=== PATIENT | male | born 1940 | race Caucasian/White ===

== ENCOUNTER 2019-04-04 14:07 | Outpatient (CLI) | payer MEDICARE, OTHER, SELFPAY ==
--- NOTE | 2019-04-04 14:25 | ECG_ITS ---
Measurements Intervals [place] Rate: 69 P: 58 [place]: 166 QRS: 59 QRSD: 101 T: 61 QT: 388 QTc: 416 Interpretive Statements SINUS RHYTHM NORMAL ECG Electronically Signed On 04-04-2019 14:49:08 BLADE FILER by Enrique Dumas D.O.
== END 2019-04-04 14:08 | disposition home or self-care (01) ==
PROVIDERS: PCP Family Medicine; Visit Provider Internal Medicine Cardiovascular Disease
DX: I50.9 Heart failure, unspecified (principal)
CPT/HCPCS: 93005

== ENCOUNTER 2019-04-07 12:22 | Outpatient (CLI) | payer MEDICARE, OTHER, SELFPAY ==
--- NOTE | 2019-04-07 12:32 | ECHO_ITS ---
Patient Info Name: Zachery Major Age: 78 years : 1940 Gender: Male Ht: 67 in Wt: 172 lbs BSA: 1.94 m2 HR: 71 bpm BP: 120 / 43 mmHg Heart Rhythm: Sinus Rhythm Technical Quality: Fair Exam Date: 04/07/2019 1:03 PM Exam Location: [facility] Patient Status: Outpatient Admit Date: 04/07/2019 Staff Ordering Physician: Enrique Dumas DO Lump Roller: Anthony Barba RDCS Attending Provider: Enrique Dumas DO Referring Physician: Piter STAFFORD; Exam Type: CA echo doppler color flow Study Info Indications I50.9 - Heart failure, unspecified Complete two-dimensional, color flow and Doppler transthoracic echocardiogram is performed. Strain analysis performed. History/Risk Factors Heart failure. Summary 1. Left ventricular chamber dimension is normal. 2. Left ventricular systolic function is normal, estimated at 65-70%. 3. There is moderately increased left ventricular wall thickness. 4. The left ventricular diastolic function is grade I diastolic dysfunction. 5. E/e' 13 is mildly elevated. 6. Global longitudinal strain is essentially normal at -16.8%. 7. The aortic valve is not well visualized. 8. There is mild aortic valve stenosis based on a peak velocity of 212 cm/s, mean gradient of 9 mmHg, and aortic valve area of 1.7 cm2. 9. No pulmonary hypertension, estimated pulmonary arterial systolic pressure is 38 mmHg. Left Ventricle E/e' 13 is mildly elevated. Global longitudinal strain is essentially normal at -16.8%. Left ventricular chamber dimension is normal. Left ventricular systolic function is normal, estimated at 65-70%. There is moderately increased left ventricular wall thickness. The left ventricular diastolic function is grade I diastolic dysfunction. Right Ventricle Right ventricular chamber dimension is normal. Right ventricular systolic function is normal. Left Atria Left atrial chamber dimension is normal. Right Atria Right atrial chamber dimension is normal. Aortic Valve There is mild aortic valve stenosis based on a peak velocity of 212 cm/s, mean gradient of 9 mmHg, and aortic valve area of 1.7 cm2. Cannot determine number of aortic valve leaflets. The aortic valve is not well visualized. There is no aortic valve regurgitation. Pulmonic Valve There is no pulmonic regurgitation. Mitral Valve There is no mitral valve stenosis. There is no mitral valve regurgitation. Tricuspid Valve There is no tricuspid valve regurgitation. No pulmonary hypertension, estimated pulmonary arterial systolic pressure is 38 mmHg. Pericardium/Pleural There is no pericardial effusion. Inferior Vena Cava Normal inferior vena cava with >50% collapse upon inspiration consistent with normal right atrial pressure, 5 mmHg. Aorta The aortic root size at the sinus of Valsalva is normal. Left Ventricular Outflow Tract Name Value Normal LVOT 2D LVOT Diameter 2.0 cm LVOT Doppler LVOT Peak Velocity 124 cm/s LVOT Peak Gradient 6 mmHg LVOT Mean Gradient 3 mmHg LVOT VTI
== END 2019-04-07 12:23 | disposition home or self-care (01) ==
PROVIDERS: PCP Family Medicine; Visit Provider Internal Medicine Cardiovascular Disease
DX: I50.9 Heart failure, unspecified (principal)
CPT/HCPCS: 93306

== ENCOUNTER 2019-12-13 14:35 | Outpatient (CLI) | payer MEDICARE, OTHER, SELFPAY ==
--- NOTE | ~2019-12-13 | US_ITS ---
EXAMINATION: US abdomen complete EXAM DATE: 12/13/2019 15:42 INDICATION: R10.9 - Unspecified abdominal pain . TECHNIQUE: Multiple grayscale and Doppler images of the complete abdomen were obtained (by a technolo gist who performed the scan) and subsequently reviewed. There is no prior study for comparison. FINDINGS: The abdominal aorta is normal in caliber. Visualized portion IVC is patent. Pancreas not visualiz ed due to bowel gas. The liver has normal echogenicity and contour. There are no focal liver lesions identified. There is no evidence of intrahepatic biliary duct dilation. Portal venous flow was seen in the hepatopedal , normal direction and has normal Doppler waveform. Common bile duct measures 5 mm, which is normal. The gallbladder fossa is unremarkable. Right kidney: There is normal contour and echogenicity. It measures 6.4 x 4.3 x 5.2 centimeters. T here are no focal renal lesions identified. There is no hydronephrosis. Left kidney: There is normal contour and echogenicity. It measures 10.6 x 5.5 x 4.3 centimeters. T here are no focal renal lesions identified. There is no hydronephrosis. The spleen measures 9.3 centimeters and is morphologically normal. IMPRESSION: 1. Unremarkable complete abdominal ultrasound exam. Reviewed, dictated and finalized at location B. [employer]
[2019-12-13 14:55] LABS: Basophils Absolute Auto 0.06 K/mm3 (0.00-0.10); Basophils Percent Auto 0.7 % (0.0-1.0); Eosinophils Absolute Auto 0.07 K/mm3 (0.02-0.50); Eosinophils Percent Auto 0.8 % (1.0-6.0); Hematocrit 42.8 % (37.0-46.0); Hemoglobin 13.8 g/dL (12.4-15.3); Immature Granulocyte Absolute 0.03 K/mm3 (0.00-0.00); Immature Granulocyte Percent A 0.3 % (0.0-0.0); Lymphocytes Absolute Auto 2.23 K/mm3 (1.10-4.50); Lymphocytes Percent Auto 24.8 % (18.0-42.0); Mean Corpuscular HGB Conc 32.2 g/dL (32.0-36.0); Mean Corpuscular Hemoglobin 33.2 pg (27.0-31.0); Mean Corpuscular Volume 102.9 fL (78.0-102.0); Mean Platelet Volume 10.1 fl (8.7-11.0); Monocytes Absolute Auto 0.77 K/mm3 (0.10-0.90); Monocytes Percent Auto 8.5 % (2.0-11.0); Neutrophils Absolute Auto 5.9 K/mm3 (1.7-7.2); Neutrophils Percent Auto 64.9 % (50.0-70.0); Platelet Count Result 188 K/mm3 (150-420); Red Blood Count 4.16 M/mm3 (4.70-6.10); Red Cell Distribution Width 12.1 % (11.6-14.4)
[2019-12-13 15:11] LABS: Alanine Aminotransferase 25 U/L (16-63); Albumin Level 4.1 g/dL (3.4-5.0); Alkaline Phosphatase 79 U/L (46-116); Amylase 61 U/L (25-115); Anion Gap 11 mmol/L (8-16); Aspartate Amino Transferase 22 U/L (15-37); Bilirubin,Total 0.7 mg/dL (0.00-1.00); Blood Urea Nitrogen 44 mg/dL (7-18); Calcium 8.5 mg/dL (8.5-10.1); Carbon Dioxide 31 mmol/L (21-32); Chloride 99 mmol/L (98-108); Estimated Glomerular Filt Rate 43; Glucose 114 mg/dL (70-99); Lipase 147 U/L (73-393); Osmolality Calculated 304 mOsm/kg (285-295); Potassium 3.1 mmol/L (3.5-5.1); Sodium 141 mmol/L (136-145); Total Protein 7.4 g/dL (6.4-8.2)
== END 2019-12-13 14:36 | disposition home or self-care (01) ==
LOC: CHSLAB 14:39
PROVIDERS: PCP Family Medicine; Visit Provider Nurse Practitioner Family
DX: R10.9 Unspecified abdominal pain (principal)
CPT/HCPCS: 36415; 76700; 80053; 82150; 83690; 85025

== ENCOUNTER 2020-01-28 11:45 | Emergency (ER) | payer MEDICARE, OTHER, SELFPAY ==
--- NOTE | ~2020-01-28 | XR_ITS ---
EXAMINATION: XR lumbar spine 2-3V DATE: 01/28/2020 12:38 INDICATION: Low back pain. TECHNIQUE: 3 views of lumbar spine on 4 radiographs were obtained. COMPARISON: Lumbar spine radiographs 06/07/14, lumbar spine MRI 09/30/2014 FINDINGS: There is 3 mm retrolisthesis of L1 on L2 and L2 on L3. There is 7 degrees dextrocurvature o f lumbar spine. Vertebral body heights are normal. There is moderately decreased disc height at L1-L2 and L2-L3, mildly decreased disc height at L3-L4, moderately decreased disc height at L4-L5, and sev erely decreased disc height at L5-S1. There is multilevel facet joint osteoarthritis. There are surgi gina clips in the abdomen. IMPRESSION: 1. Severe lumbar spondylosis. Reviewed, dictated and finalized at location A. 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
[2020-01-28 12:00] VITALS: BP 122/64; PULSE 76; RESP 18; TEMP 36.6; O2SAT 100
--- NOTE | 2020-01-28 12:16 | ED.GENADULT ---
HPI - General Adult General Chief complaint: Back Pain/Injury Stated complaint: back pain Source: patient Mode of arrival: ambulatory Limitations: no limitations History of Present Illness HPI narrative: Zachery is a 79M with a PMH of osteoporosis, Parkinsons, CHF, GERD and chronic back pain s/p surgery in 1995. He normally has a chronic ache but right now it feels like a screw front end driver is being drilled into his back and pain shoots down his leg. It started a few days ago. No fall, trauma, loss of bowel or bladder control, numbness or paralysis. Related Data Home Medications Medication Instructions Recorded Confirmed calcium carbonate 600 mg calcium 600 mg PO BID 02/16/19 01/28/20 (1,500 mg) tablet magnesium 250 mg tablet 500 mg PO DAILY tablet 02/16/19 01/28/20 multivitamin with iron 1 tablet PO DAILY 02/16/19 12/27/19 sildenafil (pulm.hypertension) 20 20 mg PO ONCE PRN tablet 02/16/19 01/28/20 mg tablet tramadol 50 mg tablet 50 mg PO Q6H PRN 02/16/19 01/28/20 vitamin A 8,000 unit capsule 25,000 unit PO DAILY cap 02/16/19 01/28/20 ferrous sulfate 325 mg (65 mg 325 mg PO DAILY 08/15/19 01/28/20 iron) tablet dwhabk-lekcxtau-cnnggkv 2 cap PO BID 08/15/19 01/28/20 12,000-38,000-60,000 unit capsule,delayed rel wsblsrxxguyd-qgbcrlyg-rsjttc 1 tablet PO DAILY 01/28/20 01/28/20 [Centrum Silver] vitamins A,C,R-nxej-hrnyyh 1 tablet PO BID 01/28/20 01/28/20 [Ocuvite Preservision] Allergies Allergy/AdvReac Type Severity Reaction Status Date / Time adhesive Allergy Intermediate Unknown Verified 12/23/19 10:22 adhesive tape Allergy Unknown rash Verified 12/23/19 10:22 Review of Systems Constitutional: Constitutional: Reports no additional constitutional complaints Eyes: Eyes: Reports no additional eye complaints ENT: Reports system reviewed and no additional complaints, except as documented Cardiovascular: Cardiovascular: Reports no additional cardiovascular complaints Respiratory: Respiratory: Reports no additional respiratory complaints Gastrointestinal: Gastrointestinal: Reports no additional gastrointestinal complaints Genitourinary: Genitourinary: Reports no additional male genitourinary complaints Musculoskeletal: Musculoskeletal: Reports as per HPI Integumentary/Breasts: Skin/Breast: Reports system reviewed and no additional complaints, except as docu Neurologic: Reports system reviewed and no additional complaints, except as documented Psychiatric: Psychiatric: Reports no additional psychiatric complaints [facility] Past Medical History Medical History Arthritis CHF (congestive heart failure) Constipation Fusion of lumbar spine Generalized osteoarthritis Heart murmur Hypokalemia Parkinsons disease Rectal fistula Trigger finger Surgical History Surgical History H/O hernia repair umbilical H/O repair of rotator cuff bilateral History of back surgery L3-:4 History of bilateral knee arthroplasty History of carpal tunnel release bilateral History of cataract surgery S/P biliopancreatic diversion with duodenal switch Family History Family History Mother Renal failure Father Burn Sibling Acute myocardial infarction Hypertension Other Family history of alcoholism Family history of arthritis Family history of glaucoma Family history of hearing loss Social History Social History Smoking status: Former smoker Tobacco type: cigarettes Alcohol intake: never Exam Const: General: no acute distress and alert Orientation/consciousness: patient oriented x3 Limitations: No altered mental status HENMT: Other: normocephalic, atraumatic Eyes: Conjunctivae: conjunctivae normal Pupils: Equal, round and reactive pupils present Neck
[2020-01-28] MEDS: MORPHINE SULFATE (*CRX) 4 MG/ML INJ IM (12:23)
== END 2020-01-28 13:20 | disposition home or self-care (01) ==
PROVIDERS: Emergency Provider Family Medicine; PCP Family Medicine
DX: M47.896 Other spondylosis, lumbar region (principal)
CPT/HCPCS: 72100; 96372; 99283; J2270

== ENCOUNTER 2020-03-28 07:54 | Outpatient (CLI) | payer MEDICARE, SELFPAY ==
[2020-03-28 08:07] LABS: Hematocrit 40.9 % (37.0-46.0); Hemoglobin 13.1 g/dL (12.4-15.3); Mean Corpuscular Hemoglobin 31.6 pg (27.0-31.0); Mean Corpuscular Volume 98.6 fL (78.0-102.0); Mean Platelet Volume 10.3 fl (8.7-11.0); Platelet Count Result 181 K/mm3 (150-420); Red Blood Count 4.15 M/mm3 (4.70-6.10); Red Cell Distribution Width 13.5 % (11.6-14.4); White Blood Count 8.5 K/mm3 (4.8-10.8)
[2020-03-28 09:41] LABS: Alanine Aminotransferase 24 U/L (16-63); Albumin Level 3.8 g/dL (3.4-5.0); Alkaline Phosphatase 91 U/L (46-116); Anion Gap 10 mmol/L (8-16); Aspartate Amino Transferase 21 U/L (15-37); Bilirubin,Total 0.6 mg/dL (0.00-1.00); Blood Urea Nitrogen 41 mg/dL (7-18); Calcium 8.4 mg/dL (8.5-10.1); Carbon Dioxide 29 mmol/L (21-32); Chloride 101 mmol/L (98-108); Estimated Glomerular Filt Rate 47; Ferritin 228 ng/mL (26-388); Folic Acid > 20.0 ng/mL (8.6->20); Glucose 86 mg/dL (70-99); Osmolality Calculated 299 mOsm/kg (285-295); Potassium 3.4 mmol/L (3.5-5.1); Sodium 140 mmol/L (136-145); Total Protein 6.7 g/dL (6.4-8.2); Vitamin B12 1163 pg/mL (193-986)
[2020-03-31 09:55] LABS: Vitamin A 56 mcg/dL (38-98)
== END 2020-03-28 07:55 | disposition home or self-care (01) ==
LOC: CHSLAB 07:58
PROVIDERS: PCP Family Medicine; Visit Provider Family Medicine
DX: I50.9 Heart failure, unspecified (principal); E87.6 Hypokalemia; Z98.84 Bariatric surgery status; E53.8 Deficiency of other specified B group vitamins
CPT/HCPCS: 36415; 80053; 82607; 82728; 82746; 84590; 85027

== ENCOUNTER 2020-04-23 12:52 | Outpatient (RCR) | payer MEDICARE, OTHER, SELFPAY ==
--- NOTE | 2020-04-23 13:43 | PTOPEVAL ---
Thank you for referring Zachery Major to [facility] [place] [facility] [place] The patient is scheduled to be seen for therapy? __3__x/week for 12 visits. Please review, sign, date and return this plan of care [place]. I agree with and certify that the following plan of care is medically necessary. Referring Physician Date Admitting Provider: Attending Provider: Bacilio Álvarez Referring Provider: *PT Outpatient Evaluation Start: 04/23/20 13:02 Freq: Status: Active Protocol: Document 04/23/20 13:03 BRITTNEY (Rec: 04/23/20 13:42 BRITTNEY [email or web address]) Therapy Assessment Status Assessment Status Assessment Status Evaluation Outpatient Past Medical History Neurological History Hx Parkinson's Disease Yes Gastrointestinal History Hx Gastroesophageal Reflux Disease Yes Hx Hernia Yes Musculoskeletal History Hx Arthritis Yes Hx Back Pain Yes Hx Joint Replacement Yes Hx Orthopedic Surgery Yes Evaluation Information Problem Diagnosis idiopathic parkinson's disease , unsteady gait Onset 09/10/19 Subjective Information Pt. reports that he was Query Text:As Reported By Patient/ diagnosed with PD in September. Family He reports that he is most limited by his back pain. He reports that he cannot help around the home very often due to inability to stand due to pain. He reports that he is using a cane to walk for the past several months. He states that he is no longer driving. He denies any recent falls, but notes that he cannot walk without a cane or walker. He reports that his primary goal is to reduce his back pain. Prior Level of Function Comments Additional Prior Level of Function Pt. lives with his . He Comments states that he is able to complete dressing, grooming and bathing, but his has to complete the more aggressive house work. He reports that he gave up driving about 1 month ago. Pain Assessment Pain Scale Pain Scale Used Numeric (1 - 10) Self Report Pain Assessment Lower Back Reported Pain Level 2 Pain Description Aching,Burning Pain Rad
--- NOTE | 2020-05-25 15:00 | PTOPEVAL ---
Thank you for referring Zachery Major to [facility].? The patient is scheduled to be seen for therapy? ____x/week for ___ weeks. Please review, sign, date and return this plan of care [place]. I agree with and certify that the following plan of care is medically necessary. Referring Physician Date Admitting Provider: Attending Provider: Bacilio Álvarez Referring Provider: *PT Outpatient Evaluation Start: 04/23/20 13:02 Freq: Status: Active Protocol: Document 05/25/20 13:40 ACR (Rec: 05/25/20 14:48 ACR [email or web address]) Therapy Assessment Status Assessment Status Assessment Status Discharge Outpatient Past Medical History Neurological History Hx Parkinson's Disease Yes Gastrointestinal History Hx Gastroesophageal Reflux Disease Yes Hx Hernia Yes Musculoskeletal History Hx Arthritis Yes Hx Back Pain Yes Hx Joint Replacement Yes Hx Orthopedic Surgery Yes Evaluation Information Problem Diagnosis idiopathic PD, low back pain Onset 09/10/19 Subjective Information Patient states that he feels Query Text:As Reported By Patient/ he can move his lower legs Family easier. He states that his condition is chronic and is unable to think of anything else that has improved since the beginning of therapy. He states the pain fluctuates and was so bad this morning that he was unable to move his legs . Pain Assessment Timing of Pain Assessment Timing of Pain Assessment Pre-Treatment Pain Scale Pain Scale Used Numeric (1 - 10) Self Report Pain Assessment Lower Back Reported Pain Level 2 Greatest Pain Intensity 9 Pain Score Pain Score 2: Self Report Interventions Used Interventions Used By Clinicians Activity or ADL's,Education, Electrical Stimulation, Exercise,Heat Lower Extremity Muscle Strength Testing General Lower Extremity Strength Gross Lower Extremity Strength B hip flexion: 4+/5 B hip extension: 4/5 B knee flexion: 5/5 B knee extension: 4+/5 B ankle DF: 4+/5 Muscle Length Testing Muscle Length Testing Muscle Length Testing Comments Patient unable to be on back this visit to check hamstring flexibility Balance Assessment Tinetti Balance Assessment Sitting Balance Steady,
== END 2020-05-25 15:45 | disposition home or self-care (01) ==
LOC: CHSPT 12:52
DX: G20 Parkinson's disease (principal); R26.9 Unspecified abnormalities of gait and mobility
CPT/HCPCS: 97014; 97110; 97161; G0283

== ENCOUNTER 2020-05-24 12:21 | Outpatient (CLI) | payer MEDICARE, OTHER, SELFPAY ==
--- NOTE | ~2020-05-24 | DEXA_ITS ---
Bone Density Report Name: Zachery Major Age: 79 Sex: Male Ethnicity: White Date of : 1940 Indication: screening for osteoporosis; height loss; prior fracture; Referring Provider: Adrien Harris Study: Bone densitometry was performed. Exam Date: May 24, 2020 Accession number: [id number] Bone Density: Region BMD T-score Z-score Classification AP Spine(L3, L4) 0.718 -3.7 -2.6 Osteoporosis Femoral Neck (Left) 0.568 -2.7 -1.2 Osteoporosis Total Hip (Left) 0.737 -2.0 -1.0 Osteopenia Femoral Neck (Right) 0.545 -2.8 -1.4 Osteoporosis Total Hip (Right) 0.653 -2.5 -1.6 Osteoporosis Femoral Neck Mean 0.557 -2.7 -1.3 Osteoporosis Total Hip Mean 0.695 -2.2 -1.3 Osteopenia World Health Organization criteria for BMD impression classify patients as: Normal (T-score at or above -1.0), Osteopenia (T-score between -1.0 and -2.5), or Osteoporosis (T-score at or below -2.5). 10-year Fracture Risk: FRAX not reported because: Some T-score for Spine Total or Hip Total or Femoral Neck at or below -2.5 Treated for osteoporosis Clinical Information Provided by Patient: Has had a low trauma fracture Is being treated for osteoporosis Has used the following medications: Fosamax (i.e. alendronate), Vitamin D, Calcium Patient maximum height was 69 Drinks caffeinated beverages Impression: The patient has established osteoporosis, based on the Total Spine T-score and the existence of a prior fracture. The patient has risk factors, including: previous fracture. Discussion: It is important to ask patients whether they are taking their medications and to encourage continued and appropriate compliance with their osteoporosis therapies to reduce fracture risk. It is also important to review their risk factors and encourage appropriate calcium and vitamin D intakes, exercise, fall prevention and other lifestyle measures. Follow-Up: Consider repeating this study in 2 years to reassess this patient's status, or sooner if there is some new clinical indication. Reported by: Dr. Dany Darling on 05/24/2020 1:01:00 PM. Reviewed, dictated and finalized at location [place]
== END 2020-05-24 12:22 | disposition home or self-care (01) ==
LOC: CHSIMG 12:23
PROVIDERS: PCP Family Medicine
DX: M81.0 Age-related osteoporosis without current pathological fracture (principal)
CPT/HCPCS: 77080

== ENCOUNTER 2020-05-28 10:41 | Outpatient (CLI) | payer MEDICARE, SELFPAY ==
[2020-05-28 11:38] LABS: Alanine Aminotransferase 12 U/L (16-63); Albumin Level 3.5 g/dL (3.4-5.0); Alkaline Phosphatase 84 U/L (46-116); Anion Gap 12 mmol/L (8-16); Aspartate Amino Transferase 21 U/L (15-37); Bilirubin,Total 0.6 mg/dL (0.00-1.00); Blood Urea Nitrogen 55 mg/dL (7-18); Calcium 7.4 mg/dL (8.5-10.1); Carbon Dioxide 28 mmol/L (21-32); Chloride 98 mmol/L (98-108); Estimated Glomerular Filt Rate 38; Glucose 65 mg/dL (70-99); Osmolality Calculated 299 mOsm/kg (285-295); Phosphorus 4.6 mg/dL (2.6-4.7); Potassium 3.2 mmol/L (3.5-5.1); Sodium 138 mmol/L (136-145); Total Protein 6.3 g/dL (6.4-8.2)
[2020-05-31 06:53] LABS: Albumin 3.8 g/dL (3.8-4.8); Alpha 1 Globulin 0.3 g/dL (0.2-0.3); Alpha 2 Globulin 0.6 g/dL (0.5-0.9); Beta 1 Globulin 0.3 g/dL (0.4-0.6); Protein, Total 6.2 g/dL (6.1-8.1)
[2020-06-06 19:20] LABS: Gliadin AB, IgG 3 Units (<20); Reticulin IgA Negative (Negative); TTG IGA AB 1 U/mL (<4)
== END 2020-05-28 10:42 | disposition home or self-care (01) ==
LOC: CHSLAB 10:45
PROVIDERS: PCP Family Medicine
DX: E83.51 Hypocalcemia (principal); M81.0 Age-related osteoporosis without current pathological fracture
CPT/HCPCS: 36415; 80053; 83516; 84100; 84155; 84165; 86255

== ENCOUNTER 2020-07-30 09:55 | Outpatient (CLI) | payer MEDICARE, SELFPAY ==
[2020-07-30 11:03] LABS: Alanine Aminotransferase 11 U/L (16-63); Albumin Level 3.2 g/dL (3.4-5.0); Alkaline Phosphatase 79 U/L (46-116); Anion Gap 10 mmol/L (8-16); Aspartate Amino Transferase 23 U/L (15-37); Bilirubin,Total 0.5 mg/dL (0.00-1.00); Blood Urea Nitrogen 43 mg/dL (7-18); Calcium 7.5 mg/dL (8.5-10.1); Carbon Dioxide 27 mmol/L (21-32); Chloride 103 mmol/L (98-108); Estimated Glomerular Filt Rate 42; Glucose 81 mg/dL (70-99); Osmolality Calculated 299 mOsm/kg (285-295); Potassium 4.4 mmol/L (3.5-5.1); Sodium 140 mmol/L (136-145)
== END 2020-07-30 09:56 | disposition home or self-care (01) ==
PROVIDERS: PCP Family Medicine
DX: M81.0 Age-related osteoporosis without current pathological fracture (principal)
CPT/HCPCS: 36415; 80053; 84100

== ENCOUNTER 2020-08-15 07:27 | Outpatient (CLI) | payer MEDICARE, SELFPAY ==
[2020-08-15 08:19] LABS: Albumin Level 3.3 g/dL (3.4-5.0); Calcium 8.3 mg/dL (8.5-10.1)
== END 2020-08-15 07:28 | disposition home or self-care (01) ==
LOC: CHSLAB 07:31
PROVIDERS: PCP Family Medicine
DX: E83.51 Hypocalcemia (principal); M81.0 Age-related osteoporosis without current pathological fracture
CPT/HCPCS: 36415; 82040; 82310

== ENCOUNTER 2020-08-20 15:59 | Outpatient (CLI) | payer MEDICARE, OTHER, SELFPAY ==
--- NOTE | ~2020-08-20 | CT_ITS ---
EXAMINATION: CT brain wo con EXAM DATE: 08/20/2020 16:35 INDICATION: M95.2 - Other acquired deformity of head fall x2days ago w/ depression @ apex of skull . TECHNIQUE: Spiral CT of the head was performed without contrast. Axial, coronal and sagittal images were reviewed. The dose-length product (DLP) for this examination was 681.00 mGy-cm. The exposure w as tailored according to patient size, and iterative reconstruction (ASIR) was used as additional dos e reduction technique. Correlation is made to brain MRI examination 2009. FINDINGS: There is no acute intraparenchymal hemorrhage. No evidence of intraparenchymal brain mass lesion. No evidence of acute infarction. Please note that initial head CT has limited sensitivity f or small or acute infarctions. There is mild periventricular and subcortical hypodensity, nonspecific but probably related to small vessel ischemic disease. There is moderate prominence of the sulci a nd ventricles related to cerebral atrophy. There is intracranial carotid arteriosclerosis. There a re no extra-axial collections. There is no mass effect or midline shift. Patient has had bilateral ocular lens surgery. Soft tissue is unremarkable. The visualized sinuses and mastoid air cells are well aerated. IMPRESSION: 1. No acute intracranial findings. 2. Chronic age related findings. Reviewed, dictated and finalized at location A.
== END 2020-08-20 16:00 | disposition home or self-care (01) ==
LOC: CHSIMG 16:03
PROVIDERS: PCP Family Medicine; Visit Provider Family Medicine
DX: M95.2 Other acquired deformity of head (principal)
CPT/HCPCS: 70450

== ENCOUNTER 2020-10-30 08:34 | Outpatient (CLI) | payer MEDICARE, SELFPAY ==
[2020-10-30 09:18] LABS: Anion Gap 10 mmol/L (8-16); Blood Urea Nitrogen 40 mg/dL (7-18); Calcium 6.9 mg/dL (8.5-10.1); Carbon Dioxide 27 mmol/L (21-32); Chloride 108 mmol/L (98-108); Estimated Glomerular Filt Rate 51; Glucose 85 mg/dL (70-99); Osmolality Calculated 308 mOsm/kg (285-295); Potassium 4.1 mmol/L (3.5-5.1); Sodium 145 mmol/L (136-145)
== END 2020-10-30 08:35 | disposition home or self-care (01) ==
LOC: CHSLAB 08:36
PROVIDERS: PCP Family Medicine
DX: M81.0 Age-related osteoporosis without current pathological fracture (principal)
CPT/HCPCS: 36415; 80048

== ENCOUNTER 2020-11-07 14:01 | Outpatient (CLI) | payer MEDICARE, SELFPAY ==
[2020-11-07 14:21] LABS: Basophils Absolute Auto 0.05 K/mm3 (0.00-0.10); Basophils Percent Auto 0.7 % (0.0-1.0); Eosinophils Absolute Auto 0.08 K/mm3 (0.02-0.50); Eosinophils Percent Auto 1.2 % (1.0-6.0); Hematocrit 35.4 % (37.0-46.0); Hemoglobin 11.4 g/dL (12.4-15.3); Immature Granulocyte Absolute 0.02 K/mm3 (0.00-0.00); Immature Granulocyte Percent A 0.3 % (0.0-0.0); Lymphocytes Absolute Auto 1.68 K/mm3 (1.10-4.50); Lymphocytes Percent Auto 24.7 % (18.0-42.0); Mean Corpuscular HGB Conc 32.2 g/dL (32.0-36.0); Mean Corpuscular Volume 108.6 fL (78.0-102.0); Mean Platelet Volume 10.2 fl (8.7-11.0); Monocytes Absolute Auto 0.72 K/mm3 (0.10-0.90); Monocytes Percent Auto 10.6 % (2.0-11.0); Neutrophils Absolute Auto 4.2 K/mm3 (1.7-7.2); Neutrophils Percent Auto 62.5 % (50.0-70.0); Platelet Count Result 151 K/mm3 (150-420); Red Blood Count 3.26 M/mm3 (4.70-6.10); Red Cell Distribution Width 12.7 % (11.6-14.4); White Blood Count 6.8 K/mm3 (4.8-10.8)
[2020-11-07 14:25] LABS: Anion Gap 8 mmol/L (8-16); Blood Urea Nitrogen 40 mg/dL (7-18); Calcium 7.1 mg/dL (8.5-10.1); Carbon Dioxide 26 mmol/L (21-32); Chloride 108 mmol/L (98-108); Estimated Glomerular Filt Rate 42; Glucose 124 mg/dL (70-99); Osmolality Calculated 304 mOsm/kg (285-295); Potassium 3.3 mmol/L (3.5-5.1); Sodium 142 mmol/L (136-145)
== END 2020-11-07 14:02 | disposition home or self-care (01) ==
LOC: CHSLAB 14:02
PROVIDERS: PCP Family Medicine; Visit Provider Internal Medicine
DX: E83.51 Hypocalcemia (principal)
CPT/HCPCS: 36415; 80048; 85025

== ENCOUNTER 2020-11-09 07:40 | Outpatient (CLI) | payer MEDICARE, SELFPAY ==
[2020-11-09 08:03] LABS: Albumin Level 3.1 g/dL (3.4-5.0); Calcium 7.4 mg/dL (8.5-10.1)
== END 2020-11-09 07:41 | disposition home or self-care (01) ==
LOC: CHSLAB 07:41
PROVIDERS: PCP Family Medicine; Visit Provider Internal Medicine
DX: E83.51 Hypocalcemia (principal)
CPT/HCPCS: 36415; 82040; 82310

== ENCOUNTER 2020-11-16 11:38 | Outpatient (CLI) | payer MEDICARE, SELFPAY ==
[2020-11-16 11:59] LABS: Albumin Level 3.2 g/dL (3.4-5.0); Calcium 8.4 mg/dL (8.5-10.1)
== END 2020-11-16 11:39 | disposition home or self-care (01) ==
LOC: CHSLAB 11:41
PROVIDERS: PCP Family Medicine; Visit Provider Internal Medicine
DX: E83.51 Hypocalcemia (principal)
CPT/HCPCS: 36415; 82040; 82310

== ENCOUNTER 2020-11-19 11:18 | Outpatient (NON) | payer MEDICARE, SELFPAY ==
[2020-11-19 11:26] LABS: Occult Blood Negative (Negative)
== END 2020-11-19 11:19 | disposition home or self-care (01) ==
LOC: CHSLAB 11:19
PROVIDERS: Visit Provider Family Medicine
DX: R63.4 Abnormal weight loss (principal)
CPT/HCPCS: 82272

== ENCOUNTER 2020-11-23 09:17 | Outpatient (CLI) | payer MEDICARE, SELFPAY ==
[2020-11-23 10:08] LABS: Anion Gap 9 mmol/L (8-16); Blood Urea Nitrogen 44 mg/dL (7-18); Calcium 8.2 mg/dL (8.5-10.1); Carbon Dioxide 27 mmol/L (21-32); Chloride 106 mmol/L (98-108); Estimated Glomerular Filt Rate 40; Glucose 72 mg/dL (70-99); Osmolality Calculated 304 mOsm/kg (285-295); Potassium 3.1 mmol/L (3.5-5.1); Sodium 142 mmol/L (136-145)
== END 2020-11-23 09:18 | disposition home or self-care (01) ==
LOC: CHSLAB 09:20
PROVIDERS: PCP Family Medicine
DX: E83.51 Hypocalcemia (principal)
CPT/HCPCS: 36415; 80048

== ENCOUNTER 2020-12-17 09:06 | Outpatient (CLI) | payer MEDICARE, SELFPAY ==
[2020-12-17 10:11] LABS: Albumin Level 2.8 g/dL (3.4-5.0); Anion Gap 7 mmol/L (8-16); Blood Urea Nitrogen 34 mg/dL (7-18); Calcium 7.2 mg/dL (8.5-10.1); Carbon Dioxide 27 mmol/L (21-32); Chloride 103 mmol/L (98-108); Estimated Glomerular Filt Rate 47; Glucose 81 mg/dL (70-99); Magnesium 2.4 mg/dL (1.8-2.4); Osmolality Calculated 290 mOsm/kg (285-295); Potassium 3.8 mmol/L (3.5-5.1); Sodium 137 mmol/L (136-145)
== END 2020-12-17 09:07 | disposition home or self-care (01) ==
PROVIDERS: PCP Family Medicine; Visit Provider Internal Medicine Cardiovascular Disease
DX: E83.51 Hypocalcemia (principal); M81.0 Age-related osteoporosis without current pathological fracture
CPT/HCPCS: 36415; 80048; 82040; 83735

== ENCOUNTER 2021-01-08 13:47 | Outpatient (RCR) | payer MEDICARE, OTHER, SELFPAY ==
--- NOTE | 2021-01-08 15:15 | PTOPEVAL ---
Thank you for referring Zachery Major to [facility].? The patient is scheduled to be seen for therapy? __2__x/week for 10 visits. Please review, sign, date and return this plan of care [place]. I agree with and certify that the following plan of care is medically necessary. Referring Physician Date Admitting Provider: Attending Provider: Clinton Vidales DO Referring Provider: *PT Outpatient Evaluation Start: 01/08/21 14:00 Freq: Status: Active Protocol: Document 01/08/21 14:01 BRITTNEY (Rec: 01/08/21 15:14 BRITTNEY [email or web address]) Therapy Assessment Status Assessment Status Assessment Status Evaluation Outpatient Past Medical History Neurological History Hx Parkinson's Disease Yes Gastrointestinal History Hx Gastroesophageal Reflux Disease Yes Hx Hernia Yes Musculoskeletal History Hx Arthritis Yes Hx Back Pain Yes Hx Joint Replacement Yes Hx Orthopedic Surgery Yes Evaluation Information Problem Diagnosis PD, back pain, unsteady gait Onset 12/18/20 Subjective Information Pt. reports that he was Query Text:As Reported By Patient/ diagnosed with PD in May last year. He reports 2-3 weeks ago he was going into his garage and right leg gave out while on the steps and fell. He reports having multiple falls over the recent months. He does have handrail on the steps that he has fallen on, just forgets to use it. He does use a cane in the community and perfers to use his walker, but it is difficult to transport. He reports that he suffers from chronic back pain that is present all day, every day. He states that he can no longer go shopping due to being unable to walk an adequate distance. He reports that his goal for therapy is to become more safe and be able to walk further. 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
== END 2021-02-05 09:46 | disposition home or self-care (01) ==
LOC: CHSPT 13:47
PROVIDERS: PCP Family Medicine; Visit Provider Family Medicine
DX: G20 Parkinson's disease (principal); R26.81 Unsteadiness on feet
CPT/HCPCS: 97110; 97161; 97530

== ENCOUNTER 2021-01-15 08:02 | Outpatient (CLI) | payer MEDICARE, SELFPAY ==
[2021-01-15 09:55] LABS: Albumin Level 2.7 g/dL (3.4-5.0); Anion Gap 9 mmol/L (8-16); Blood Urea Nitrogen 54 mg/dL (7-18); Calcium 7.5 mg/dL (8.5-10.1); Carbon Dioxide 28 mmol/L (21-32); Chloride 102 mmol/L (98-108); Estimated Glomerular Filt Rate 35; Glucose 77 mg/dL (70-99); Osmolality Calculated 301 mOsm/kg (285-295); Potassium 3.7 mmol/L (3.5-5.1); Sodium 139 mmol/L (136-145)
== END 2021-01-15 08:03 | disposition home or self-care (01) ==
LOC: CHSLAB 08:04
PROVIDERS: PCP Family Medicine; Visit Provider Internal Medicine
DX: E83.51 Hypocalcemia (principal)
CPT/HCPCS: 36415; 80069

== ENCOUNTER 2021-05-16 10:40 | Outpatient (CLI) | payer MEDICARE, OTHER, SELFPAY ==
--- NOTE | ~2021-05-16 | US_ITS ---
EXAMINATION: US retroperitoneal comp EXAM DATE: 05/16/2021 11:08 INDICATION: N28.9 - Disorder of kidney and ureter, unspecified . TECHNIQUE: Multiple grayscale and Doppler images of the kidneys were obtained (by a technologist who performed the scan) and subsequently reviewed. Comparison is made to prior examination from 12/13/2019 . FINDINGS: Right kidney: There is normal contour and echogenicity. It measures 6.8 x 3.0 x 4.3, moderately atro phic. centimeters. There are no focal renal lesions identified. There is no hydronephrosis. Left kidney: There is normal contour and echogenicity. It measures 11.0 x 3.7 x 5.4 centimeters. The re is an exophytic renal lesion measuring 9 x 12 x 10 mm which is hypoechoic, may demonstrate color f low versus artifact. Differential diagnosis would include splenule. No evidence of this in the superi or pole of the kidney imaged on CT from 2018. There is no hydronephrosis. Bladder unremarkable. IMPRESSION: Solid-appearing lesion contiguous to left renal contour, exophytic mass or possibly splen ule; CT scan abdomen without and with contrast recommended. Reviewed, dictated and finalized at location A. IMPRESSION: Solid-appearing lesion contiguous to left renal contour, exophytic mass or possibly splenule; CT scan abdomen without and with contrast recommende bharat
== END 2021-05-16 10:41 | disposition home or self-care (01) ==
LOC: CHSIMG 10:42
PROVIDERS: PCP Family Medicine; Visit Provider Family Medicine
DX: N28.9 Disorder of kidney and ureter, unspecified (principal)
CPT/HCPCS: 76770

== ENCOUNTER 2021-05-20 07:03 | Inpatient (IN) | payer MEDICARE, OTHER, SELFPAY ==
--- NOTE | ~2021-05-20 | CT_ITS ---
EXAMINATION: CT brain wo con DATE: 05/20/2021 08:44 INDICATION: Dizziness. TECHNIQUE: Computed tomography (CT) of the head was performed without intravenous contrast. The mA wa s adjusted according to patient size. Iterative reconstruction technique was employed. The dose-lengt h product was 605.33 mGy-cm. COMPARISON: Head CT 08/20/2020 FINDINGS: There are scattered areas of low attenuation in the cerebral white matter, which is within normal limits for the patient's age. There is no intracranial hemorrhage, acute infarction, or abnorm al intracranial mass lesion. The ventricles are normal in size. The mastoid air cells are normal. The paranasal sinuses are clear. IMPRESSION: 1. Normal aging brain. Reviewed, dictated and finalized at location A. IMPRESSION: 1. Normal aging brain.
--- NOTE | ~2021-05-20 | XR_ITS ---
EXAMINATION: XR chest 1V portable EXAM DATE: 05/22/2021 08:31 INDICATION: wet cough x 1wk, non-productive w/ chest congest, hx of CHF. TECHNIQUE: Portable AP frontal chest x-ray was obtained. Comparison is made to prior examination from 05/20/2021. FINDINGS: Some small scattered postinfectious residua in the lungs. No confluent consolidation. Ther e are no pleural effusions. Cardiac silhouette is prominent but magnified on this AP technique. Th ere is no pneumothorax suspected. There are bony degenerative changes. There is aortic arteriosclero sis. IMPRESSION: No acute cardiopulmonary findings. Reviewed, dictated and finalized at location B.
--- NOTE | ~2021-05-20 | CT_ITS ---
EXAMINATION: CT abdomen pelvis wo con DATE: 05/20/2021 08:43 INDICATION: Constipation. TECHNIQUE: Computed tomography (CT) of the abdomen and pelvis was performed without intravenous contr ast. Automated exposure control and iterative reconstruction technique were employed. The dose-length product was 383.96 mGy-cm. COMPARISON: Ultrasound kidneys 05/16/2021 FINDINGS: The visualized portions of the lung bases demonstrate mild atelectasis and chronic lung dis ease. There is bronchiectasis bilaterally. Calcified bilateral lung nodules are consistent with old g ranulomatous disease. There are centrilobular nodules and tree-in-bud opacities in right middle lobe, right lower lobe, and anterior segment right upper lobe, consistent with pneumonia. No pleural effus ion. The heart size is normal. There are coronary artery calcifications. There are calcifications of aortic valve. No pericardial effusion. There is a moderate-sized sliding hiatal hernia. There are liz gical changes in the stomach. Calcifications in the liver consistent with old granulomatous disease. The spleen is normal. The pancreas and adrenal glands are normal. There is a 2 mm stone in right kidn ey. There is a 12 mm cyst in right kidney. There are 2 masses in left kidney measuring soft tissue at tenuation measuring up to 11 mm. There is mild left hydronephrosis and proximal hydroureter. There is a large volume of stool in the colon with distention of the rectosigmoid. The bladder is distended. There is a left inguinal hernia containing fat. The appendix is not visualized. There are no patholog ically enlarged lymph nodes. There is no free intraperitoneal fluid. There are burst fractures of T11 and L2 with changes of vertebroplasty. There are changes of vertebroplasty in L1. There is severe denia mbar spondylosis. There are bridging endplate osteophytes at multiple levels in the thoracic spine, c onsistent with diffuse idiopathic skeletal hyperostosis (DISH). IMPRESSION: 1. Large volume of stool in the colon with distention of the rectosigmoid. 2. Mild right-sided pneumonia. 3. Moderate-sized sliding hiatal hernia. 4. Mild left hydronephrosis and proximal hydroureter, which may be secondary to mass effect from the distended rectosigmoid. 5. Two left kidney masses measuring up to 11 mm. The larger mass demonstrated peripheral vascular maria esther w on ultrasound and is suspicious for renal cell carcinoma. The smaller mass may be a hemorrhagic cys t or neoplasm. Abdomen CT without and with contrast is recommended. Reviewed, dictated and finalized at location A. IMPRESSION: 1. Large volume of stool in the colon with distention of the rectosigmoid. 2. Mild right-sided pneumonia. 3. Moderate-sized sliding hiatal hernia. 4. Mild left hydronephrosis and proximal hydroureter, which may be secondary to mass effect from the distended rectosigmoid. 5. Two left kidney masses measuring up to 11 mm. The larger mass demonstrated p eripheral vascular flow on ultrasound and is suspicious for renal cell carcinom a. The smaller mass may be a hemorrhagic cyst or neoplasm. Abdomen CT without a nd with contrast is recommended.
--- NOTE | ~2021-05-20 | CT_ITS ---
EXAMINATION: CT abdomen pelvis wo/w con DATE: 05/21/2021 09:25 INDICATION: Left kidney mass TECHNIQUE: Computed tomography (CT) of the abdomen was performed without intravenous contrast. CT of the abdomen and pelvis was then performed with a total of 100 mL Omnipaque 350 intravenous contrast. The dose-length product (DLP) was 648.60 mGy-cm. Automated exposure control and iterative reconstruct ion technique were employed. COMPARISON: 05/20/2021 FINDINGS: Right basilar airspace opacities persist with slight improvement. The heart size is normal. There is a small amount of fluid in the distal esophagus within a moderate-sized sliding hiatal viola ia. Surgical changes are noted in the stomach. The gallbladder is surgically absent. The liver, splee n, pancreas, and adrenal glands are normal. An 11 mm exophytic mass of the left mid kidney does not a ppear to enhance after contrast administration. A 6 mm mass in the lower pole of the kidney is too sm all to characterize. There is a large volume of colonic stool. Distention of the rectosigmoid colon p ersists but has slightly improved. No free intraperitoneal gas is identified. No pathologically enlar ged abdominal or pelvic lymph nodes are identified. There is calcified atherosclerosis of the aorta a nd many of the other arteries. Again noted a burst fractures of T11 and L2 with vertebroplasty change . Vertebroplasty change is also noted in the L1 vertebral body. There is severe lumbar spondylosis. IMPRESSION: 1. 11 mm left kidney mass without enhancement, consistent with a proteinaceous cyst. 2. Constipation with decreased distention of the rectosigmoid colon. 3. Slightly improved right basilar pneumonia. Reviewed, dictated and finalized at location A.
--- NOTE | ~2021-05-20 | XR_ITS ---
EXAMINATION: XR chest 1V portable EXAM DATE: 05/20/2021 08:45 INDICATION: Dizziness, weakness. TECHNIQUE: Portable AP frontal chest x-ray was obtained. Comparison is made to prior examination from 04/22/2013. FINDINGS: There are bony degenerative changes. Cardiomediastinal silhouette is normal. There is aorti c arteriosclerosis. Small linear right midlung zone scarring unchanged. No confluent consolidation, p neumothorax or pleural effusion suspected. Suspicion of moderate-sized gastroesophageal hiatal hernia . IMPRESSION: 1. No acute cardiac pulmonary findings. 2. Probable moderate gastroesophageal hiatal hernia. Reviewed, dictated and finalized at location B.
--- NOTE | ~2021-05-20 | CT_ITS ---
EXAMINATION: CT diagnostic chest wo con DATE: 05/20/2021 10:47 INDICATION: Right-sided pneumonia TECHNIQUE: Computed tomography (CT) of the chest was performed without intravenous contrast. The dose -length product (DLP) was 242.49 mGy-cm. Automated exposure control and iterative reconstruction tech nique were employed. COMPARISON: 08/21/2017 FINDINGS: There are minimal airspace opacities of the right upper and lower lobes. A 4 mm nodule in t he medial aspect of the right lower lobe on image 64 is new since the comparison examination. There i s also a new 4 mm nodule in the left upper lobe on image 60. There is no pleural effusion or pneumoth orax. A moderate-sized sliding hiatal hernia is present. No pathologically enlarged thoracic lymph no luc are identified. The heart size is normal. Calcified coronary artery atherosclerosis is noted. The lungs are hyperinflated. There are surgical changes in the stomach. A large volume of colonic stool is present. Vertebroplasty changes are noted in the lower thoracic and upper lumbar spine. IMPRESSION: 1. Minimal airspace opacities of the right upper and lower lobes, consistent with pneumonia. 2. Two new 4 mm nodules in the lungs which could be infectious or inflammatory however metastatic dis ease would be a consideration if the left kidney mass described represents renal cell carcinoma. Reviewed, dictated and finalized at location A. IMPRESSION: 1. Minimal airspace opacities of the right upper and lower lobes, consistent wi th pneumonia. 2. Two new 4 mm nodules in the lungs which could be infectious or inflammatory however metastatic disease would be a consideration if the left kidney mass luc cribed represents renal cell carcinoma.
[2021-05-20 07:19] VITALS: BP 101/56; PULSE 81; RESP 16; TEMP 36.1; O2SAT 100
--- NOTE | 2021-05-20 07:37 | ECG_ITS ---
Measurements Intervals [place] Rate: 77 P: 71 ID: [id number] QRS: -11 QRSD: 98 T: 26 QT: 401 QTc: 456 Interpretive Statements SINUS RHYTHM LOW QRS VOLTAGE IN EXTREMITY LEADS [QRS DEFLECTION < 0.5 mV IN LIMB LEADS] POOR R-WAVE PROGRESSION NONSPECIFIC ST SEGMENT CHANGES COMPARED TO ECG 04/04/2019 14:32:07 REDUCTION AND R-WAVE VOLTAGE IN THE PRECORDIAL LEADS PROBABLY ALTERED LEAD POSITION Electronically Signed On 05-20-2021 15:49:43 CDT by Slick Smart M.D.
--- NOTE | 2021-05-20 07:42 | ED.WEAKNESS ---
HPI - Weakness General Chief complaint: Weakness Stated complaint: WEAKNESS DIZZY Time Seen by Provider: 05/20/21 07:05 Source: patient, family, RN notes reviewed and old records reviewed Mode of arrival: ambulatory Limitations: no limitations History of Present Illness HPI Narrative: Pt main concern was constipation. Complaint: generalized weakness and difficulty walking (pt has Parkinsonism) Onset (ago): day(s) (3) Duration: constant Migration: none Severity: mild Relieving factors: none Exacerbating factors: movement Related Data Home Medications Medication Instructions Recorded Confirmed bfdcnp-thxhzeun-eyolfcz 2 cap PO BID 08/15/19 05/20/21 12,000-38,000-60,000 unit capsule,delayed rel cholecalciferol (vitamin D3) 125 125 mcg PO DAILY 05/28/20 05/20/21 mcg (5,000 unit) capsule bumetanide 1 mg tablet 1 mg PO DAILY tablet 05/15/21 05/20/21 calcitriol 0.25 mcg capsule 0.25 mcg PO DAILY 05/15/21 05/20/21 carbidopa 25 mg-levodopa 100 mg 2 tablet PO QID tablet 05/15/21 05/20/21 tablet melatonin 10 mg capsule 10 mg PO QHS 05/15/21 05/20/21 Allergies Allergy/AdvReac Type Severity Reaction Status Date / Time adhesive Allergy Intermediate Unknown Verified 05/20/21 07:23 adhesive tape Allergy Unknown rash Verified 05/20/21 07:23 Review of Systems Review of Systems: All systems reviewed & are unremarkable except as noted in HPI and below PMFSH Past Medical History Medical History (Updated 05/20/21 @ 12:02 by Lio James MD) Arthritis CHF (congestive heart failure) Constipation Constipation Fusion of lumbar spine Generalized osteoarthritis Heart murmur Parkinsons disease Rectal fistula Trigger finger Surgical History Surgical History H/O hernia repair umbilical H/O repair of rotator cuff bilateral History of back surgery L3-:4 History of bilateral knee arthroplasty History of carpal tunnel release bilateral History of cataract surgery S/P biliopancreatic diversion with duodenal switch Family History Family History Mother Renal failure Father Burn Sibling Acute myocardial infarction Hypertension Other Family history of alcoholism Family history of arthritis Family history of glaucoma Family history of hearing loss Social History Social History (Updated 05/15/21 @ 07:50 by Carmen Steiner) Alcohol intake: never Exam Const: General: no acute distress and alert Nutritional Appearance: well nourished Orientation/consciousness: patient oriented x3 Limitations: no limitations HENMT: Head: normal to inspection Ears: external ears normal, TM's normal bilaterally and EAC's normal General nose exam: Normal external nose present and Normal nares present Face and sinus: normal facial exam and sinuses nontender Mouth: Yes lip normal and Yes moist mucous membranes Teeth and gingiva: dentition normal Eyes: Conjunctivae: conjunctivae normal Pupils: Equal, round and reactive pupils present EOM: EOMs intact bilaterally Neck: Neck: normal visual inspection and no lymphadenopathy Chest: Chest palpation & inspection: normal inspection of the chest Resp: Effort & Inspection: normal respiratory effort Auscultation: clear to auscultation bilaterally Cardio: Rate: regular rate Rhythm: regular rhythm GI: GI Palp: Yes Soft to palpation and No Tenderness to palpation present (GI) Auscultation: normal bowel sounds : General: Yes bladder normal to palpation and Yes no CVA tenderness Back/Spine/Pelvis: Back: no CVA tenderness Skin: General skin exam: normal color Rashes: no rashes Neuro: General: patient oriented x3, moves all extremities, no meningeal signs, no focal motor deficits and CN's II-XI intact bilaterally Cranial nerves: Yes Nystagmus not present Extrem: General: normal to inspection and no pedal edema Psych: Appearance:
[2021-05-20] MEDS: PANTOPRAZOLE SODIUM IV 40 MG VIAL IV PUSH (07:57)
[2021-05-20] MEDS: ONDANSETRON INJ 4 MG/2 ML VIAL IV PUSH (07:57)
[2021-05-20] MEDS: MAGNESIUM HYDROXIDE SUSP 30 ML UDC PO (07:58)
[2021-05-20] MEDS: SODIUM CHLORIDE 0.9% IV 500 ML 999 ML IV CONT (07:58)
[2021-05-20 08:13] LABS: Basophils Absolute Auto 0.04 K/mm3 (0.00-0.10); Basophils Percent Auto 0.5 % (0.0-1.0); Eosinophils Absolute Auto 0.06 K/mm3 (0.02-0.50); Eosinophils Percent Auto 0.7 % (1.0-6.0); Hematocrit 42.4 % (37.0-46.0); Hemoglobin 13.8 g/dL (12.4-15.3); Immature Granulocyte Absolute 0.02 K/mm3 (0.00-0.00); Immature Granulocyte Percent A 0.2 % (0.0-0.0); Lymphocytes Absolute Auto 1.99 K/mm3 (1.10-4.50); Lymphocytes Percent Auto 23.7 % (18.0-42.0); Mean Corpuscular HGB Conc 32.5 g/dL (32.0-36.0); Mean Corpuscular Volume 104.4 fL (78.0-102.0); Mean Platelet Volume 10.2 fl (8.7-11.0); Monocytes Absolute Auto 0.74 K/mm3 (0.10-0.90); Monocytes Percent Auto 8.8 % (2.0-11.0); Neutrophils Absolute Auto 5.5 K/mm3 (1.7-7.2); Neutrophils Percent Auto 66.1 % (50.0-70.0); Platelet Count Result 231 K/mm3 (150-420); Red Blood Count 4.06 M/mm3 (4.70-6.10); Red Cell Distribution Width 12.8 % (11.6-14.4); White Blood Count 8.4 K/mm3 (4.8-10.8)
[2021-05-20 08:30] LABS: Alanine Aminotransferase 8 U/L (16-63); Albumin Level 3.1 g/dL (3.4-5.0); Alkaline Phosphatase 112 U/L (46-116); Anion Gap 10 mmol/L (8-16); Aspartate Amino Transferase 23 U/L (15-37); Bilirubin,Total 0.7 mg/dL (0.00-1.00); Blood Urea Nitrogen 115 mg/dL (7-18); Calcium 7.5 mg/dL (8.5-10.1); Carbon Dioxide 32 mmol/L (21-32); Chloride 93 mmol/L (98-108); Estimated Glomerular Filt Rate 24; Glucose 102 mg/dL (70-99); Osmolality Calculated 316 mOsm/kg (285-295); Potassium 3.2 mmol/L (3.5-5.1); Sodium 135 mmol/L (136-145); Total Protein 6.7 g/dL (6.4-8.2); Troponin I 14.9 ng/L (0.00-60.4)
[2021-05-20 09:05] LABS: Add Urine Microscopic? NO; Appearance Urine Clear (Clear); Bilirubin Urine Negative (Negative); Blood Urine Negative (Negative); Color Urine Light Yellow (Yellow); Glucose Urine UA Negative (Negative); Ketones Urine Negative (Negative); Leukocyte Esterase Ur Negative (Negative); Nitrate Urine Negative (Negative); Protein Urine Negative (Negative); Urobilinogen Urine 0.2 mg/dL (0.2-1.0)
[2021-05-20] MEDS: POTASSIUM CHLORIDE 20 MEQ TABLET 40 MEQ PO (09:05)
[2021-05-20 10:06] LABS: Lactic Acid Reflex 1.1 mmol/L (0.4-2.0)
[2021-05-20 10:17] LABS: Base Excess ABG 3.5 mmol/L (0-2); Device ROOM AIR; HCO3 ABG 27.4 mmol/L (23-29); Modified Allen's Test Pass; Oxygen Content ABG 15.4 %vol (16.0-22.0); Oxygen Saturation ABG 87.8 % (95-97); Oxyhemoglobin 87.8 % (94-100); PCO2 ABG 39.3 mmHg (35-45); PO2 ABG 71.3 mmHg (75-85); Site Drawn LEFT RADIAL; Total Hemoglobin 12.4 g/dL (12.0-18.0); pH ABG 7.46 (7.35-7.45)
[2021-05-20 10:48] LABS: SARS-CoV-2 RNA PCR Negative (Negative)
[2021-05-20 10:49] LABS: Influenza A QL RT-PCR Negative (Negative); Influenza B QL RT-PCR Negative (Negative)
--- NOTE | 2021-05-20 10:58 | PC.NURSE ---
urology called back, states they will follow up with patient outpatient.
--- OUTSIDE RECORDS SUMMARY | 2021-05-20 12:31 | XMS_ITS | Encounter Summary ---
:[address] [facility] rs Address [address] [place] [address] Care Team Providers Name Role Phone BRANNONROMEO OWEN Primary Care Provider Unavailable Insurance Providers: All historical and current Section Date Range: From patient's date of to the date document was created.This section includes the names of all active insurance providers for the patient. Insurance Type of Plan Start of End of Group Member Insurance Policy P atient's Provider Coverage Name Policy Policy Number ID Provider's Rice's Relationship Coverage Coverage Telephone Name to Policy Number Rice CAREBERT PRESCRIPT [facility] June 09, [id number] [address] ([id number])RX ION 2014 [id number] [phone] ,JEAN PAUL CAREMARK PRESCRIPT [facility] Feb 09, [id number] [address] ([id number])RX ION 2009 [id number] [phone] ,JEAN PAUL MEDICARE MEDICARE PART Aug 09, PART B [id number] ANTHONY RNE PATIENT (WNR) (M) B 2006 [id number] 7 ,JOEL MEDICARE MEDICARE PART Aug 09, PART B [id number] ANTHONY RNE PATIENT (WNR) (M) B 2006 [id number] 7 ,JOEL MEDICARE MEDICARE PART Mar 12, PART A [id number] ANTHONY RNE PATIENT (WNR) (M) A 2005 [id number] 7 ,JOEL MEDICARE MEDICARE PART Mar 12, PART A [id number] ANTHONY RNE PATIENT (WNR) (M) A 2005 [id number] ,JOEL COUNTS INCLUDE 234 BEDS AT THE [facility]
--- OUTSIDE RECORDS SUMMARY | 2021-05-20 12:31 | XMS_ITS | Summary of Care ---
:1940 Author Organization [facility] Address [address] [place] [address]- Care Team Providers Name Role Phone Unassigned, Out of State Primary Care Physician Unavailable Encounter [facility] [id number] Date(s): 04/02/21 - 04/02/21 [facility] [address] [place] [address]- Discharge Disposition: HOME OR SELF CARE Attending Physician: Jennifer Knutson MD Admitting Physician: UNASSIGNED , ER DOCTOR Allergies, Adverse Reactions, Alerts Substance Reaction Severity Status Tape Rash Severe Active Immunizations Given and Recorded Vaccine Date Status Refusal Reason influenza virus vaccine, inactivated 12/02/07 Recorded Medications Dulcolax Stool Softener 100 mg oral capsule 100 mg, = 1 cap(s), PO, 1xDaily, PRN as needed for constipation, X 5 day(s), # 10 cap(s), 0 Refill(s), 04/02/21 18:39:00 EST, 1 Start Date: 04/02/21 Stop Date: 04/07/21 Status: OrderedLidoderm 5% Topical Patch 1 patch(es), TOP, 1xDaily, PRN Pain, on for 12 hours within a 24-hour period, X 7 day(s), # 10 patch(es), 0 Refill(s), 1 Start Date: 04/02/21 Stop Date: 04/09/21 Status: OrderedNorco 5 mg-325 mg oral tablet 1 tab(s), PO, 3xDaily, PRN pain, X 3 day(s), # 12 tab(s), 0 Refill(s), 1 Start Date: 04/02/21 Stop Date: 04/05/21 Status: Ordered Vital Signs Most recent to oldest 1 2 3 [Reference Range]: Temperature Oral 98.5 DegF 98.3 DegF [96.44-99.14 DegF] (04/02/21 6:04 PM) (04/02/21 5:11 PM) Temperature Oral 98.3 DegF [96.4-99.1 DegF] (04/02/21 5:17 PM) Pulse Rate [60-110 bpm] 77 bpm 77 bpm 77 bpm (04/02/21 6:04 PM) (04/02/21 5:17 PM) (04/02/21 5:1 2 PM) Respiratory Rate [12-20 16 br/min 18 br/min 18 br/mi n br/min] (04/02/21 6:04 PM) (04/02/21 5:17 PM) (04/02/21 5:1 1 PM) Mean Arterial Pressure, 78 mmHg 78 mmHg Cuff (04/02/21 6:03 PM) (04/02/21 5:11 PM)
--- OUTSIDE RECORDS SUMMARY | 2021-05-20 12:31 | XMS_ITS | Continuity of Care Document ---
:1940 Author Organization [facility] Care Team Providers Name Role Phone [place] Unavailable Unavailable Problems Combined list of problems from Department of Defense and Veterans Affairs facilities. It does not include entries that were removed or entered in error. Problem Status Onset Problem Type Date of Comments Source Date Resolution Gastroesophageal Active Condition . [facility] reflux disease [facility] ([facility] 643812978) Hearing loss (SNOMED Active Condition [facility] 49971151) [facility] Heart murmur Active Condition . [place] [facility] Hypertension (SNOMED Active Condition [facility] [place] 90894390) [facility] Osteoporosis (SCT Active Condition [facility] [id number]) [place] [facility] Parkinson's disease Active Condition [facility]
--- OUTSIDE RECORDS SUMMARY | 2021-05-20 12:31 | XMS_ITS | Summary of Care ---
:1940 Author Organization [facility] Address [address] [place] [address]- Care Team Providers Name Role Phone Unassigned, Out of State Primary Care Physician Unavailable Encounter [facility] [id number] Date(s): 03/26/21 - 03/26/21 [facility] [address] [place] [address]- Discharge Disposition: HOME OR SELF CARE Attending Physician: Doe Villeda MD Admitting Physician: Deo Villeda MD Allergies, Adverse Reactions, Alerts Substance Reaction Severity Status Tape Rash Severe Active Immunizations Given and Recorded Vaccine Date Status Refusal Reason influenza virus vaccine, inactivated 12/02/07 Recorded Medications ondansetron 4 mg oral tablet 4 mg, = 1 tab(s), PO, q6hr, PRN Nausea/Vomiting, # 10 tab(s), 0 Refill(s), 03/26/21 15:22:00 EST, Pharmacy: [id number], 1 tab(s) PO q6hr,PRN:Nausea/Vomiting, 1, 160.02, cm, 03/26/21 12:37:00 EST, Height cm, 66.8, kg, 03/26/21 1... Start Date: 03/26/21 Status: OrderedtraMADol 50 mg oral tablet 50 mg, = 1 tab(s), PO, q6hr, PRN for pain, X 7 day(s), # 20 tab(s), 0 Refill(s), 03/26/21 15:22:00 EST, Pharmacy: [id number], 1 tab(s) PO q6hr,x7 day(s),PRN:for pain, 1, 160.02,cm, 03/26/21 12:37:00 EST, Height cm, 66.8, kg, 0... Start Date: 03/26/21 Stop Date: 04/02/21 Status: OrderedTylenol 325 mg oral tablet 650 mg =, 2 tab(s), PO, q4hr, PRN Pain, 0 Refill(s), 1 Start Date: 03/26/21 Status: Ordered Procedures Procedure Date Related Diagnosis Body Site Status Kyphoplasty1 03/26/21 Completed 1auto-populated from documented surgical case Results Laboratory List Name Date *PC CBG 03/26/21 Most recent to oldest [Reference Range]: 1 PC CBG [70-99 mg/dL] 86 mg/dL 1 (03/26/21 12:21 PM) 1Result Comment: [facility], [address] [place], [address] Vital Signs Most recent to oldest 1 2
--- OUTSIDE RECORDS SUMMARY | 2021-05-20 12:31 | XMS_ITS | Encounter Summary ---
:1940 Author Organization [facility] rs Address [address] [place] [address] Care Team Providers Name Role Phone BRANNONROMEO [...] Name to Policy Number Rice CAREBERT PRESCRIPT [facility] June 09, [id number] [address] ([id number])RX ION 2014 [id number] [phone] ,JEAN PAUL CAREMARK PRESCRIPT [facility] Feb 09, [id number] [address] ([id number])RX ION 2009 42B [phone] ,JEAN PAUL MEDICARE MEDICARE PART Aug 09, PART B [id number] ANTHONY RNE PATIENT (WNR) (M) B 2006 68A 7 ,JOEL MEDICARE MEDICARE PART Aug 09, PART B [id number] ANTHONY RNE PATIENT (WNR) (M) B 2006 [id number] 7 ,JOEL MEDICARE MEDICARE PART Mar 12, PART A [id number] ANTHONY RNE PATIENT (WNR) (M) A 2005 68A 7 ,JOEL MEDICARE MEDICARE PART Mar 12, PART A [id number] [phone] ANTHONY RNE PATIENT (WNR) (M) A 2005 [id number] 7 ,[facility]
--- OUTSIDE RECORDS SUMMARY | 2021-05-20 12:31 | XMS_ITS | Encounter Summary ---
:1940 Author Organization [facility] Address [address] [place] [address] Care Team Providers Name Role Phone ROMEO BRANNNO Primary Care Provider Unavailable Insurance Providers: All [...] Name to Policy Number Rice CAREBERT PRESCRIPT [facility] June 09, [id number] [address] ([id number])RX ION 2014 42BA [phone] ,JEAN PAUL CAREMARK PRESCRIPT [facility] Feb 09, [id number] [address] ([id number])RX ION 2009 42B [phone] ,JEAN PAUL MEDICARE MEDICARE PART Aug 09, PART B [id number] ANTHONY RNE PATIENT (WNR) (M) B 2006 68A 7 ,JOEL MEDICARE MEDICARE PART Aug 09, PART B [id number] CINDYHO RNE PATIENT (WNR) (M) B 2006 [id number] 7 ,JOEL MEDICARE MEDICARE PART Mar 12, PART A [id number] CINDYHO RNE PATIENT (WNR) (M) A 2005 68A 7 ,JOEL MEDICARE MEDICARE PART Mar 12, PART A [id number] [phone] ANTHONY RNE PATIENT (WNR) (M) A 2005 [id number] 7 ,JOEL [facility] PREFERRED NA
--- OUTSIDE RECORDS SUMMARY | 2021-05-20 12:31 | XMS_ITS | Encounter Summary ---
:1940 Author Organization [facility] rs Address [address] [place] [address] Care Team Providers Name Role Phone BRANNONROMEO [...] Name to Policy Number Rice CAREBERT PRESCRIPT [facility] June 09, [id number] [address] ([id number])RX ION 2014 42BA [phone] ,JEAN PAUL CAREMARK PRESCRIPT [facility] Feb 09, [id number] [address] ([id number])RX ION 2009 42B [phone] ,JEAN PAUL MEDICARE MEDICARE PART Aug 09, PART B [id number] ANTHONY RNE PATIENT (WNR) (M) B 2006 68A 7 ,JOEL MEDICARE MEDICARE PART Aug 09, PART B [id number] ANTHONY RNE PATIENT (WNR) (M) B 2006 [id number] 7 ,JOEL MEDICARE MEDICARE PART Mar 12, PART A [id number] ANTHONY RNE PATIENT (WNR) (M) A 2005 68A 7 ,JOEL MEDICARE MEDICARE PART Mar 12, PART A [id number] [id number] ANTHONY RNE PATIENT (WNR) (M) A 2005 [id number] 7 ,JOEL [facility]
--- OUTSIDE RECORDS SUMMARY | 2021-05-20 12:31 | XMS_ITS | Summary of Care ---
:1940 Author Organization [facility] Address [address] [place] [address]- Care Team Providers Name Role Phone Unassigned, Out of State Primary Care Physician Unavailable Encounter [facility] [id number] Date(s): 04/22/21 - 04/22/21 [facility] [address] [place] [address]- Discharge Disposition: HOME OR SELF CARE Attending Physician: Andree Santos MD Admitting Physician: UNASSIGNED , ER DOCTOR Allergies, Adverse Reactions, Alerts Substance Reaction Severity Status Tape Rash Severe Active Immunizations Given and Recorded Vaccine Date Status Refusal Reason influenza virus vaccine, inactivated 12/02/07 Recorded Results Laboratory List Name Date APTT (Activated PTT) 04/22/21 BN Peptide (BNP) 04/22/21 CBC with Differential 04/22/21 CMP 04/22/21 Magnesium Level 04/22/21 PT/INR 04/22/21 Urinalysis reflex Microscopy/Culture 04/22/21 Most recent to oldest [Reference Range]: 1 Culture Reflexed No (04/22/21 6:24 PM) eGFR (nonAfrAm) 46 mL/min/1.73 m2 *NA* (04/22/21 6:24 PM) eGFR (AfrAm) 56 mL/min/1.73 m2 *NA* (04/22/21 6:24 PM) OLGA Suspected N/A 1 (04/22/21 6:24 PM) eCrCl (Drug Dosing) [70-120 mL/min] 33 mL/min 2 *LOW* (04/22/21 6:24 PM) Basophil, Abs [0.0-0.
--- OUTSIDE RECORDS SUMMARY | 2021-05-20 12:31 | XMS_ITS | Encounter Summary ---
:1940 Author Organization [facility] Address [address] [place] [address] Care Team Providers Name Role Phone ROMEO BRANNON Primary Care Provider Unavailable Insurance Providers: All [...] Name to Policy Number Rice CAREBERT PRESCRIPT [facility] June 09, [id number] [address] ([id number])RX ION 2014 42BA [phone] ,JEAN PAUL CAREMARK PRESCRIPT [facility] Feb 09, [id number] [address] ([id number])RX ION 2009 42B [phone] ,JEAN PAUL MEDICARE MEDICARE PART Aug 09, PART B [id number] ANTHONY RNE PATIENT (WNR) (M) B 2006 [id number] 7 ,JOEL MEDICARE MEDICARE PART Aug 09, PART B [id number] CINDYHO RNE PATIENT (WNR) (M) B 2006 [id number] 7 ,JOEL MEDICARE MEDICARE PART Mar 12, PART A [phone] CINDYHO RNE PATIENT (WNR) (M) A 2005 [id number] 7 ,JOEL MEDICARE MEDICARE PART Mar 12, PART A [id number] [phone] ANTHONY RNE PATIENT (SONAMR) (Yobany) A 2005 CR16 7 ,JOEL [facility] PREFERRED N
--- OUTSIDE RECORDS SUMMARY | 2021-05-20 12:31 | XMS_ITS | Encounter Summary ---
:1940 Author Organization [facility] Address [address] [place] [address] Care Team Providers Name Role Phone ROMEO [...] Coverage Telephone Name to Policy Number Rice CAREEBRT PRESCRIPT [facility] June 09, [id number] [address] ([id number])RX ION 2014 42BA [phone] ,JEAN PAUL CAREMARK PRESCRIPT [facility] Feb 09, [id number] [address] ([id number])RX ION 2009 42B [phone] ,JEAN PAUL MEDICARE MEDICARE PART Aug 09, PART B [id number] ANTHONY RNE PATIENT (WNR) (M) B 2006 68A 7 ,JOEL MEDICARE MEDICARE PART Aug 09, PART B [id number] CINDYHO RNE PATIENT (WNR) (M) B 2006 [id number] 7 ,JOEL MEDICARE MEDICARE PART Mar 12, PART A [id number] CINDYHO RNE PATIENT (WNR) (M) A 2005 68A 7 ,JOEL MEDICARE MEDICARE PART Mar 12, PART A [id number] [phone] ANTHONY RNE PATIENT (SONAMR) (Yobany) A 2005 CR16 7 ,JOEL [facility] PREFERRED N
--- OUTSIDE RECORDS SUMMARY | 2021-05-20 12:31 | XMS_ITS | Summary of Care ---
:1940 Author Organization [facility] Address [address] [place] [address]- Care Team Providers Name Role Phone Unassigned, Out of State Primary Care Physician Unavailable Encounter [facility] [id number] Date(s): 03/26/21 - 03/26/21 [facility] [address] [place] [address]- Discharge Disposition: DO NOT USE REG IN ERROR Attending Physician: Doe Villeda MD Admitting Physician: Doe Villeda MD Allergies, Adverse Reactions, Alerts Substance Reaction Severity Status Tape Rash Severe Active Immunizations Given and Recorded Vaccine Date Status Refusal Reason influenza virus vaccine, inactivated 12/02/07 Recorded Social History Social History Type Response Tobacco Cigarettes, 20 per day. Sta rted age 23 Years. Stopped age 52 Years. Smoking Status Never a smoker Sex Male
--- OUTSIDE RECORDS SUMMARY | 2021-05-20 12:31 | XMS_ITS | Encounter Summary ---
:1940 Author Organization [facility] Address [address] [place] [address] Care Team Providers Name Role Phone ROMEO [...] Name to Policy Number Rice CAREBERT PRESCRIPT [facility] June 09, [id number] [address] ([id number])RX ION 2014 42BA [phone] ,JEAN PAUL CAREMARK PRESCRIPT [facility] Feb 09, [id number] [address] ([id number])RX ION 2009 42B [phone] ,JEAN PAUL MEDICARE MEDICARE PART Aug 09, PART B [id number] ANTHONY RNE PATIENT (WNR) (M) B 2006 68A 7 ,JOEL MEDICARE MEDICARE PART Aug 09, PART B [id number] CINDYHO RNE PATIENT (WNR) (M) B 2006 [id number] 7 ,JOEL MEDICARE MEDICARE PART Mar 12, PART A [id number] CINDYHO RNE PATIENT (WNR) (M) A 2005 68A 7 ,JOEL MEDICARE MEDICARE PART Mar 12, PART A [id number] [phone] ANTHONY RNE PATIENT (WNR) (M) A 2005 CR16 7 ,JOEL [facility] PREFERRED NA
--- OUTSIDE RECORDS SUMMARY | 2021-05-20 12:31 | XMS_ITS | Encounter Summary ---
:1940 Author Organization [facility] Address [address] [place] [address] Care Team Providers Name Role Phone ROMEO [...] Name to Policy Number Rice CAREBERT PRESCRIPT [facility] June 09, [id number] [address] ([id number])RX ION 2014 42BA [phone] ,JEAN PAUL CAREMARK PRESCRIPT [facility] Feb 09, [id number] [address] ([id number])RX ION 2009 42B [phone] ,JEAN PAUL MEDICARE MEDICARE PART Aug 09, PART B [id number] [phone] ANTHONY RNE PATIENT (WNR) (M) B 2006 68A 7 ,JOEL MEDICARE MEDICARE PART Aug 09, PART B [id number] [phone] ANTHONY RNE PATIENT (WNR) (M) B 2006 [id number] 7 ,JOEL MEDICARE MEDICARE PART Mar 12, PART A [id number] [id number] CINDYHO RNE PATIENT (WNR) (M) A 2005 68A 7 ,JOEL MEDICARE MEDICARE PART Mar 12, PART A [id number] [phone] ANTHONY GUEVARA PATIENT (SONAM[facility]) (Yobany) A 2005 CR16 7 ,JOEL [facility] PREFERRED N
--- OUTSIDE RECORDS SUMMARY | 2021-05-20 12:32 | XMS_ITS | Encounter Summary ---
:1940 Author Organization [facility] Address [address] [place] [address] Care Team Providers Name Role Phone ROMEO [...] Name to Policy Number Rice CAREBERT PRESCRIPT [facility] June 09, [id number] [address] ([id number])RX ION 2014 42BA [phone] ,JEAN PAUL CAREMARK PRESCRIPT [facility] Feb 09, [id number] [address] ([id number])RX ION 2009 42B [phone] ,JEAN PAUL MEDICARE MEDICARE PART Aug 09, PART B [id number] ANTHONY RNE PATIENT (WNR) (M) B 2006 68A 7 ,JOEL MEDICARE MEDICARE PART Aug 09, PART B [id number] ANTHONY RNE PATIENT (WNR) (M) B 2006 [id number] 7 ,JOEL MEDICARE MEDICARE PART Mar 12, PART A [id number] CINDYHO RNE PATIENT (WNR) (M) A 2005 68A 7 ,JOEL MEDICARE MEDICARE PART Mar 12, PART A [id number] [id number] ANTHONY UGEVARA PATIENT (WNR) (M) A 2005 CR16 7 ,JOEL [facility] NAL
--- OUTSIDE RECORDS SUMMARY | 2021-05-20 12:32 | XMS_ITS | Encounter Summary ---
:1940 Author Organization [facility] rs Address [address] [place] [address] Care Team Providers Name Role Phone BRANNON ROMEO Primary Care Provider Unavailable Insurance Providers: All [...] Coverage Telephone Name to Policy Number Rice CAREMARK PRESCRIPT [facility] June 09, [id number] [address] ([id number])RX ION 2014 42BA [phone] ,JEAN PAUL CAREMARK PRESCRIPT [facility] Feb 09, [id number] [address] ([id number])RX ION 2009 42B [phone] ,JEAN PAUL MEDICARE MEDICARE PART Aug 09, PART B [id number] ANTHONY RNE PATIENT (WNR) (M) B 2006 68A 7 ,JOEL MEDICARE MEDICARE PART Aug 09, PART B [id number] [id number] CINDYHO RNE PATIENT (WNR) (M) B 2006 CR16 7 ,JOEL MEDICARE MEDICARE PART Mar 12, PART A [id number] [id number] HINTHO RNE PATIENT (WNR) (M) A 2005 68A 7 ,JOEL MEDICARE MEDICARE PART Mar 12, PART A [id number] [phone] ANTHONY NAJERAE PATIENT (WNR) (M) A 2005 CR16 7 ,JOEL [facility] PREFERRED NA
--- OUTSIDE RECORDS SUMMARY | 2021-05-20 12:32 | XMS_ITS | Encounter Summary ---
:1940 Author Organization [facility] rs Address [address] [place] [address] Care Team Providers Name Role Phone BRANNON [...] Name to Policy Number Rice CAREMARK PRESCRIPT [facility] June 09, [id number] [address] ([id number])RX ION 2014 42BA [phone] ,JEAN PAUL CAREMARK PRESCRIPT [facility] Feb 09, [id number] [address] ([id number])RX ION 2009 42B [phone] ,JEAN PAUL MEDICARE MEDICARE PART Aug 09, PART B [phone] ANTHOYN RNE PATIENT (WNR) (M) B 2006 68A 7 ,JOEL MEDICARE MEDICARE PART Aug 09, PART B [id number] [id number] CINDYHO RNE PATIENT (WNR) (M) B 2006 CR16 7 ,JOLE MEDICARE MEDICARE PART Mar 12, PART A [id number] [id number] HINTHO RNE PATIENT (WNR) (M) A 2005 68A 7 ,JOEL MEDICARE MEDICARE PART Mar 12, PART A [id number] [phone] ANTHONY NAJERAE PATIENT (WNR) (M) A 2005 CR16 7 ,JOEL [facility] PREFERRED NA
--- OUTSIDE RECORDS SUMMARY | 2021-05-20 12:32 | XMS_ITS | Encounter Summary ---
:1940 Author Organization [facility] Address [address] [place] [address] Care Team Providers Name Role Phone CLOVIS ROMEO Primary Care Provider Unavailable Insurance Providers: [...] Name to Policy Number Rice CAREMARK PRESCRIPT [facility] June 09, [id number] [address] ([id number])RX ION 2014 42BA [phone] ,JEAN PAUL CAREMARK PRESCRIPT [facility] Feb 09, [id number] [address] ([id number])RX ION 2009 42B [phone] ,JEAN PAUL MEDICARE MEDICARE PART Aug 09, PART B [id number] [id number] CINDYHO RNE PATIENT (WNR) (M) B 2006 68A 7 ,JOEL MEDICARE MEDICARE PART Aug 09, PART B [id number] [phone] CINDYHO RNE PATIENT (WNR) (M) B 2006 CR16 7 ,JOEL MEDICARE MEDICARE PART Mar 12, PART A [id number] [id number] HINTHO RNE PATIENT (WNR) (M) A 2005 68A 7 ,JOEL MEDICARE MEDICARE PART Mar 12, PART A [id number] [phone] ANTHONY RNE PATIENT (WNR) (M) A 2005 CR16 7 ,JOEL [facility] PREFERRED
--- OUTSIDE RECORDS SUMMARY | 2021-05-20 12:32 | XMS_ITS | Encounter Summary ---
:1940 Author Organization [facility] rs Address [address] [place] [address] Care Team Providers Name Role Phone BRANNONMETARNULFO Primary Care Provider Unavailable Insurance Providers: All [...] Name to Policy Number Rice CAREBERT PRESCRIPT [facility] June 09, [id number] [address] ([id number])RX ION 2014 [id number] [phone] ,JEAN PAUL CAREMARK PRESCRIPT [facility] Feb 09, [id number] ([id number])RX ION 2009 [id number] [phone] ,JEAN PAUL MEDICARE MEDICARE PART Aug 09, PART B [id number] ANTHONY RNE PATIENT (WNR) (M) B 2006 [id number] ,JOEL MEDICARE MEDICARE PART Aug 09, PART B [id number] CINDYHO RNE PATIENT (WNR) (M) B 2006 [id number] ,JOEL MEDICARE MEDICARE PART Mar 12, PART A [id number] HINTHO RNE PATIENT (WNR) (M) A 2005 [id number] ,JOEL MEDICARE MEDICARE PART Mar 12, PART A [id number] ANTHONY NAJERAE PATIENT (WNR) (M) A 2005 [id number] ,JOEL [facility] PREFERR
[2021-05-20 12:43] VITALS: BP 97/67; PULSE 86; RESP 16; TEMP 36.8; O2SAT 97
--- NOTE | 2021-05-20 13:25 | PC.NURSE ---
Patient admitted to room 205 for observation due to constipation. Patient also has 2 11 mm masses on R kidney to be followed up with as outpatient. Patient arrived to floor accompanied by ED Staff in w/c and transferred with stand by assist into bed. and son in law at bedside.
[2021-05-20] MEDS: SODIUM CHLORIDE 0.9% IV 1,000 ML 75 ML IV CONT (13:35)
[2021-05-20] MEDS: CARBIDOPA/LEVODOPA 25/100 MG TABLET 2 TABLET PO ×3 (14:14→21:11)
--- NOTE | 2021-05-20 14:46 | PC.NURSE ---
Patient able to have a very large BM. BM was melendez, formed and of moderate consistency. Patient states that he feels significantly better.
[2021-05-20 16:00] VITALS: BP 95/64; PULSE 77; RESP 16; TEMP 36.5; O2SAT 97
[2021-05-20] MEDS: DOCUSATE SODIUM 100 MG CAPSULE PO (17:37)
[2021-05-20] MEDS: MELATONIN 5 MG TABLET 10 MG PO (21:12)
[2021-05-20] MEDS: traZODone HCL 50 MG TABLET PO (21:12)
[2021-05-21] VITALS: BP 93/43; PULSE 64; RESP 18; TEMP 36.3; O2SAT 98
--- NOTE | 2021-05-21 01:53 | PC.NURSE ---
States unable to sleep; explained medications for sleep given by previous nurse, Continues to bend arm causing IV to stop infusing @75ml/hr per pump. Given explanation of need to keep arm straight, states he wants to read since he can not sleep. Liliana Salazar RN informed of situation.
[2021-05-21] MEDS: SODIUM CHLORIDE 0.9% IV 1,000 ML 75 ML IV CONT (02:44)
[2021-05-21 05:11] LABS: Hematocrit 36.2 % (37.0-46.0); Hemoglobin 11.9 g/dL (12.4-15.3); Mean Corpuscular HGB Conc 32.9 g/dL (32.0-36.0); Mean Corpuscular Hemoglobin 34.3 pg (27.0-31.0); Mean Corpuscular Volume 104.3 fL (78.0-102.0); Mean Platelet Volume 9.8 fl (8.7-11.0); Platelet Count Result 194 K/mm3 (150-420); Red Blood Count 3.47 M/mm3 (4.70-6.10); White Blood Count 6.7 K/mm3 (4.8-10.8)
--- NOTE | 2021-05-21 05:15 | PC.NURSE ---
Voiding clear, light yellow urine. Urine strained, no stone noted this shift.
[2021-05-21 05:48] LABS: Alanine Aminotransferase 8 U/L (16-63); Albumin Level 2.5 g/dL (3.4-5.0); Alkaline Phosphatase 91 U/L (46-116); Anion Gap 8 mmol/L (8-16); Aspartate Amino Transferase 17 U/L (15-37); Bilirubin,Total 0.5 mg/dL (0.00-1.00); Blood Urea Nitrogen 89 mg/dL (7-18); Calcium 6.5 mg/dL (8.5-10.1); Carbon Dioxide 30 mmol/L (21-32); Chloride 95 mmol/L (98-108); Estimated Glomerular Filt Rate 36; Glucose 97 mg/dL (70-99); Magnesium 2.5 mg/dL (1.8-2.4); Osmolality Calculated 303 mOsm/kg (285-295); Potassium 2.6 mmol/L (3.5-5.1); Sodium 133 mmol/L (136-145); Total Protein 5.4 g/dL (6.4-8.2)
[2021-05-21 07:35] VITALS: BP 98/49; PULSE 70; RESP 16; TEMP 36.7; O2SAT 94
--- NOTE | 2021-05-21 07:40 | PHAR ---
Med from home identified: Ernesto Foster PR rx#[id number] Creon 24,000 units cap --- home order for 1 cap bid
[2021-05-21] MEDS: ENOXAPARIN 30 MG/0.3 ML SYRINGE SUB-Q (07:53)
[2021-05-21] MEDS: DOCUSATE SODIUM 100 MG CAPSULE PO ×2 (07:55→17:25)
[2021-05-21] MEDS: polyethylene glycoL 3350 17 GM POWD.PACK PO (07:55)
[2021-05-21] MEDS: CARBIDOPA/LEVODOPA 25/100 MG TABLET 2 TABLET PO ×4 (07:55→20:29)
[2021-05-21] MEDS: calcitrioL 0.25 MCG CAPSULE PO (07:56)
[2021-05-21] MEDS: CHOLECALCIFEROL 1,000 UNITS TABLET 1000 UNITS PO (07:56)
[2021-05-21] MEDS: PANTOPRAZOLE SODIUM IV 40 MG VIAL IV PUSH (07:57)
--- NOTE | 2021-05-21 09:10 | PC.NURSE ---
Patient changed to IP status from OBS remains in room 205
--- NOTE | 2021-05-21 09:35 | PCOTNOTE ---
Patient has transitioned from observation to inpatient status. Per DIE SINKER, no new therapy orders for inpatient will be placed and patient will be returning home with orders for outpatient therapy. MS
[2021-05-21] MEDS: KCL 20 MEQ/SW 100 ML 100 ML 50 MEQ IVPB ×2 (09:40→11:24)
--- NOTE | 2021-05-21 10:16 | PM.IMHP ---
H&P: HPI History of Present Illness Date/Time: 05/21/21 10:16 this is a 80-year-old male who presented to our emergency department with complaints of worsening weakness and difficulty ambulating. Patient has a past medical history of congestive heart failure, constipation, fusions of the lumbar spine, generalized osteoarthritis, heart murmur, Parkinson's disease, rectal fistula, trigger finger and arthritis. According to patient and his for the last couple of days he has progressive became weaker with more difficulty ambulating. Patient does have a history of Parkinson's and according to his his condition has worsened since his diagnosis. Patient's blood pressure is soft at 9849 and has been soft since his admission he is not currently on any blood pressure medications, WBCs 8.4, hemoglobin 13.8, hematocrit 42.4, platelets 231, ABG 7.46, CO2 39.3, O2 71.3, bicarb 27.4, sodium 135, potassium 3.2, BUN 115, creatinine 2.57, glucose 102, lactic acid 1.1, total bilirubin 0.7, AST 23, ALT 8, troponin 14.9, UA negative, CT of the head unremarkable, CT of the abdomen indicates large volume of stool, right side pneumonia, mild left hydronephrosis with proximal hydroureter which may be secondary to a mass which is on his left kidneys measuring 11 mm x 2, chest x-ray no new findings, sinus rhythm with a heart rate of 77. The patient denies SOB, CP, palpitation, extremity numbness, lightheadedness, dizziness, constipation, diarrhea, chills, or fever. Patient notes that his condition has improved since his admission. According to PT it is not safe for patient to go home alone. Patient offered swing bed ,refused. Patient will be ordered outpatient PT OT. Patient has an appointment with urology tomorrow at 11:00 to evaluate mass. Patient will more than likely be discharged tomorrow to make his appointment. Patient will remain for an additional day to monitor his blood pressure and hemoglobin. Hemoglobin with the drop possibly secondary to IV hydration. Chief Complaint: Weakness and difficulty ambulating Review of Systems Review of Systems: A 14 organ system Review of Systems was performed and pertinent positives included in the HPI, otherwise remaining ROS is negative. [facility] Past Medical History Medical History (Updated 05/21/21 @ 10:33 by Sonda R. Mike, [employer]) Arthritis CHF (congestive heart failure) Constipation Constipation Fusion of lumbar spine Generalized osteoarthritis Heart murmur Parkinsons disease Rectal fistula Trigger finger Surgical History Surgical History H/O hernia repair umbilical H/O repair of rotator cuff bilateral History of back surgery L3-:4 History of bilateral knee arthroplasty History of carpal tunnel release bilateral History of cataract surgery S/P biliopancreatic diversion with duodenal switch Family History Family History Mother Renal failure Father Burn Sibling Acute myocardial infarction Hypertension Other Family history of alcoholism Family history of arthritis Family history of glaucoma Family history of hearing loss Social History Social History (Updated 05/15/21 @ 07:50 by Carmen Steiner) Smoking packs per day: 1 Smoking cigarettes per day: 20.0 Years smoked: 20 Smoking pack-years: 20.00 Smoking status: Former smoker Tobacco type: cigarettes Second hand tobacco smoke exposure: No Smoking end date: 05/10/98 Alcohol intake: never Substance use: never Substance use type: does not use Spiritual care concerns: No Meds Home Medications and Allergies Home Medications Medication Instructions Recorded Confirmed Type xrvwbb-nfoxyjnu-hiijvor 2 cap PO BID 08/15/19 05/20/21 History 12,000-38,000-60,000 unit capsule,delayed rel calcium carbonate 600 mg calcium 600 mg PO BID #180 tablet 04/09/20 05/20/21 Rx (1,500 mg)
[2021-05-21 16:00] VITALS: BP 87/52; PULSE 71; TEMP 36.7; O2SAT 95
[2021-05-21] MEDS: MELATONIN 5 MG TABLET 10 MG PO (20:29)
[2021-05-21] MEDS: traZODone HCL 50 MG TABLET PO (20:30)
--- NOTE | 2021-05-21 23:15 | PC.NURSE ---
Contacted Milly Mckeon NP, to clarify IV orders. Orders clarified at this time.
[2021-05-21] MEDS: SODIUM CHLORIDE 0.9% IV 1,000 ML 999 ML IV CONT (23:17)
[2021-05-22] VITALS: BP 103/59; PULSE 72; RESP 20; TEMP 36.3; O2SAT 95
[2021-05-22 05:28] LABS: Hemoglobin 11.1 g/dL (12.4-15.3); Mean Corpuscular HGB Conc 31.7 g/dL (32.0-36.0); Mean Corpuscular Hemoglobin 33.5 pg (27.0-31.0); Mean Corpuscular Volume 105.7 fL (78.0-102.0); Mean Platelet Volume 10.3 fl (8.7-11.0); Platelet Count Result 179 K/mm3 (150-420); Red Blood Count 3.31 M/mm3 (4.70-6.10); White Blood Count 6.8 K/mm3 (4.8-10.8)
[2021-05-22 05:45] LABS: Alanine Aminotransferase 8 U/L (16-63); Albumin Level 2.5 g/dL (3.4-5.0); Alkaline Phosphatase 97 U/L (46-116); Anion Gap 5 mmol/L (8-16); Aspartate Amino Transferase 18 U/L (15-37); Bilirubin,Total 0.4 mg/dL (0.00-1.00); Blood Urea Nitrogen 51 mg/dL (7-18); Calcium 6.6 mg/dL (8.5-10.1); Carbon Dioxide 32 mmol/L (21-32); Chloride 98 mmol/L (98-108); Estimated Glomerular Filt Rate 52; Glucose 87 mg/dL (70-99); Magnesium 2.5 mg/dL (1.8-2.4); Osmolality Calculated 292 mOsm/kg (285-295); Sodium 135 mmol/L (136-145); Total Protein 5.3 g/dL (6.4-8.2)
[2021-05-22 08:00] VITALS: BP 94/50; PULSE 74; RESP 14; TEMP 35.6; O2SAT 93
--- NOTE | 2021-05-22 08:04 | P.DS_ITS ---
DS: Admitting Diagnosis Discharge Date 05/22/2021 Admitting Diagnosis Acute Kidney Injury DS: Discharge Diagnosis Discharge Diagnosis (1) OLGA (acute kidney injury): Code(s): N17.9 - Acute kidney failure, unspecified Status: Acute Assessment and Plan: * Possibly secondary to hydronephrosis and proximal hydroureter caused by a 2 mm stone in the right kidney * Improving BUN/Cr 115/2.57>89>1.83 * Patient has an appointment with the urologist on 05/22/2021 at 11:00 * Follow-up with urologist (2) Pneumonia: Qualifiers: Laterality: right Lung location: unspecified part of lung Pneumonia type: due to unspecified organism Qualified Code(s): J18.9 - Pneumonia, unspecified organism Code(s): J18.9 - Pneumonia, unspecified organism Status: Acute Assessment and Plan: * Imaging indicate a right upper and lower lobe pneumonia * Patient with Rocephin * WBCs and white count within normal limits * Patient was discharged home with doxycycline * Patient not having any respiratory issues at this time * ABG7.46, CO2 39.3, O2 71.3, bicarb (3) Constipation: Qualifiers: Constipation type: other constipation type Qualified Code(s): K59.09 - Other constipation Code(s): K59.00 - Constipation, unspecified Status: Acute Assessment and Plan: * Continue stool softeners along with MiraLAX patient given suppository * Constipation has improved according to CT of the abdomen (4) Kidney lesion, kaibab, left: Code(s): N28.9 - Disorder of kidney and ureter, unspecified Status: Acute Assessment and Plan: * Imaging indicates Two left kidney masses measuring up to 11 mm. The larger mass demonstrated peripheral vascular flow on ultrasound and is suspicious for renal cell carcinoma. The smaller mass may be a hemorrhagic cyst or neoplasm. Abdomen CT without and with contrast is recommended. * CT with contrast indicates 11 mm left kidney mass without enhancement, consistent with a proteinaceous cyst. * Patient has an appointment with urology on 05/22/2021 at 11:00 AM (5) Gait instability: Code(s): R26.81 - Unsteadiness on feet Status: Acute Assessment and Plan: * Secondary to Parkinson's * Patient will complete outpatient PT OT (6) Parkinsons disease: Code(s): G20 - Parkinson's disease Status: Chronic Assessment and Plan: * PT OT eval completed recommended patient continue PT OT will order as outpatient patient refuses swing bed (7) Heart murmur: Code(s): R01.1 - Cardiac murmur, unspecified Status: Acute (8) CHF (congestive heart failure): Code(s): I50.9 - Heart failure, unspecified Status: Chronic Assessment and Plan: * Compensated * Chest x-ray does not indicate pulmonary edema * Bumex on hold due to acute kidney injury will resume on discharge (9) Chronic GERD: Code(s): K21.9 - Gastro-esophageal reflux disease without esophagitis Status: Chronic Assessment and Plan: * Continue Protonix (10) Electrolyte imbalance: Code(s): E87.8 - Other disorders of electrolyte and fluid balance, not elsewhere classified Status: Acute Assessment and Plan: * [id number]>133, potassium3.2>2.6 * Patient will receive supplement * Possibly secondary to home medication Bumex 1 mg which is currently on hold * Lightly hydrated patient with caution due to history of congestive heart failure * Will closely monitor (11) Kidney stone: Code(s): N20.0 - Calculus of kidney
--- NOTE | 2021-05-22 08:04 | PM.DS ---
DS: Admitting Diagnosis Discharge Date 05/22/2021 Admitting Diagnosis Acute Kidney Injury DS: Discharge Diagnosis Discharge Diagnosis (1) OLGA (acute kidney injury): Code(s): N17.9 - Acute kidney failure, unspecified Status: Acute Assessment and Plan: Possibly secondary to hydronephrosis and proximal hydroureter caused by a 2 mm stone in the right kidney Improving BUN/Cr 115/2.57>89>1.83 Patient has an appointment with the urologist on 05/22/2021 at 11:00 Follow-up with urologist (2) Pneumonia: Qualifiers: Laterality: right Lung location: unspecified part of lung Pneumonia type: due to unspecified organism Qualified Code(s): J18.9 - Pneumonia, unspecified organism Code(s): J18.9 - Pneumonia, unspecified organism Status: Acute Assessment and Plan: Imaging indicate a right upper and lower lobe pneumonia Patient with Rocephin WBCs and white count within normal limits Patient was discharged home with doxycycline Patient not having any respiratory issues at this time ABG7.46, CO2 39.3, O2 71.3, bicarb (3) Constipation: Qualifiers: Constipation type: other constipation type Qualified Code(s): K59.09 - Other constipation Code(s): K59.00 - Constipation, unspecified Status: Acute Assessment and Plan: Continue stool softeners along with MiraLAX patient given suppository Constipation has improved according to CT of the abdomen (4) Kidney lesion, [place], left: Code(s): N28.9 - Disorder of kidney and ureter, unspecified Status: Acute Assessment and Plan: Imaging indicates Two left kidney masses measuring up to 11 mm. The larger mass demonstrated peripheral vascular flow on ultrasound and is suspicious for renal cell carcinoma. The smaller mass may be a hemorrhagic cyst or neoplasm. Abdomen CT without and with contrast is recommended. CT with contrast indicates 11 mm left kidney mass without enhancement, consistent with a proteinaceous cyst. Patient has an appointment with urology on 05/22/2021 at 11:00 AM (5) Gait instability: Code(s): R26.81 - Unsteadiness on feet Status: Acute Assessment and Plan: Secondary to Parkinson's Patient will complete outpatient PT OT (6) Parkinsons disease: Code(s): G20 - Parkinson's disease Status: Chronic Assessment and Plan: PT OT eval completed recommended patient continue PT OT will order as outpatient patient refuses swing bed (7) Heart murmur: Code(s): R01.1 - Cardiac murmur, unspecified Status: Acute (8) CHF (congestive heart failure): Code(s): I50.9 - Heart failure, unspecified Status: Chronic Assessment and Plan: Compensated Chest x-ray does not indicate pulmonary edema Bumex on hold due to acute kidney injury will resume on discharge (9) Chronic GERD: Code(s): K21.9 - Gastro-esophageal reflux disease without esophagitis Status: Chronic Assessment and Plan: Continue Protonix (10) Electrolyte imbalance: Code(s): E87.8 - Other disorders of electrolyte and fluid balance, not elsewhere classified Status: Acute Assessment and Plan: [id number]>133, potassium3.2>2.6 Patient will receive supplement Possibly secondary to home medication Bumex 1 mg which is currently on hold Lightly hydrated patient with caution due to history of congestive heart failure Will closely monitor (11) Kidney stone: Code(s): N20.0 - Calculus of kidney Status: Acute Assessment and Plan: Imaging indicates 2 mm stone in right kidney Orders to strain urine Urology appointment tomorrow (12) Hydronephrosis: Code(s): N13.30 - Unspecified hydronephrosis Status: Acute Assessment and Plan: CT of the abdomen and pelvis indicates Mild left hydronephrosis and proximal hydroureter, which may be secondary to mass effect from the distended rectosigmoid. Pat
[2021-05-22] MEDS: POTASSIUM CHLORIDE 20 MEQ TABLET PO (08:19)
[2021-05-22] MEDS: CARBIDOPA/LEVODOPA 25/100 MG TABLET 2 TABLET PO (08:19)
[2021-05-22] MEDS: DOCUSATE SODIUM 100 MG CAPSULE PO (08:19)
[2021-05-22] MEDS: CHOLECALCIFEROL 1,000 UNITS TABLET 1000 UNITS PO (08:20)
[2021-05-22] MEDS: ENOXAPARIN 30 MG/0.3 ML SYRINGE SUB-Q (08:20)
[2021-05-22] MEDS: calcitrioL 0.25 MCG CAPSULE PO (08:20)
--- NOTE | 2021-05-22 09:44 | PC.NURSE ---
Pt discharged to swing bed. VSS.
== END 2021-05-22 08:45 | disposition swing bed (61) | DRG 682 ==
LOC: CHSED 12:02 → CHS2ND 12:28
PROVIDERS: Nurse Practitioner; Admitting Provider Internal Medicine; Emergency Provider Emergency Medicine; PCP Family Medicine; Visit Provider Internal Medicine
DX: N17.9 Acute kidney failure, unspecified (principal); J18.9 Pneumonia, unspecified organism; N13.2 Hydronephrosis with renal and ureteral calculous obstruction; G20 Parkinson's disease; I50.9 Heart failure, unspecified; N28.9 Disorder of kidney and ureter, unspecified; K21.9 Gastro-esophageal reflux disease without esophagitis; K59.00 Constipation, unspecified; M19.90 Unspecified osteoarthritis, unspecified site; R91.1 Solitary pulmonary nodule; R01.1 Cardiac murmur, unspecified; Z87.891 Personal history of nicotine dependence; Z98.1 Arthrodesis status
CPT/HCPCS: 36415; 36600; 70450; 71045; 71250; 74176; 74178; 80053; 81003; 82805; 83605; 83735; 84484; 85025; 85027; 87040; 87502; 93005; 96361; 96365; 96372; 96375; 96376; 97161; 97165; 99285; A9270; C9113; C9803; G0378; J0696; J1650; J2405; J3480; J7030; J7040; Q9967; U0003; U0005

== ENCOUNTER 2021-05-22 08:49 | Inpatient (IN) | payer MEDICARE, OTHER, SELFPAY ==
--- NOTE | 2021-05-22 09:58 | PM.IMPN ---
Progress Note: A&P Assessment and Plan (1) Hydronephrosis: Code(s): N13.30 - Unspecified hydronephrosis Status: Acute Assessment and Plan: Hydronephrosis: Code(s): N13.30 - Unspecified hydronephrosis Status: Acute Assessment and Plan: CT of the abdomen and pelvis indicates Mild left hydronephrosis and proximal hydroureter, which may be secondary to mass effect from the distended rectosigmoid. Patient to follow-up with urology on 05/22/2021 at 11:00 PM (2) OLGA (acute kidney injury): Code(s): N17.9 - Acute kidney failure, unspecified Status: Acute Assessment and Plan: Possibly secondary to hydronephrosis and proximal hydroureter caused by a 2 mm stone in the right kidney Improving BUN/Cr 115/2.57>89>1.83 Patient has an appointment with the urologist on 05/22/2021 at 11:00 Follow-up with urologist today (3) Constipation: Qualifiers: Constipation type: other constipation type Qualified Code(s): K59.09 - Other constipation Code(s): K59.00 - Constipation, unspecified Status: Acute Assessment and Plan: Continue stool softeners along with MiraLAX patient given suppository Constipation has improved according to CT of the abdomen BOWEL movement yesterday (4) Pneumonia: Qualifiers: Laterality: right Lung location: unspecified part of lung Pneumonia type: due to unspecified organism Qualified Code(s): J18.9 - Pneumonia, unspecified organism Code(s): J18.9 - Pneumonia, unspecified organism Status: Acute Assessment and Plan: Imaging indicate a right upper and lower lobe pneumonia Patient with Rocephin WBCs and white count within normal limits Patient was discharged home with doxycycline Patient not having any respiratory issues at this time (5) Gait instability: Code(s): R26.81 - Unsteadiness on feet Status: Acute Assessment and Plan: Secondary to Parkinson's Patient will complete PT OT in Swing unit (6) Chronic back pain: Code(s): M54.9 - Dorsalgia, unspecified; G89.29 - Other chronic pain Status: Acute (7) Kidney lesion, tunica-biloxi, left: Code(s): N28.9 - Disorder of kidney and ureter, unspecified Status: Acute Assessment and Plan: Imaging indicates Two left kidney masses measuring up to 11 mm. The larger mass demonstrated peripheral vascular flow on ultrasound and is suspicious for renal cell carcinoma. The smaller mass may be a hemorrhagic cyst or neoplasm. Abdomen CT without and with contrast is recommended. CT with contrast indicates 11 mm left kidney mass without enhancement, consistent with a proteinaceous cyst. Patient has an appointment with urology on 05/22/2021 at 11:00 AM (8) Lung nodule: Code(s): R91.1 - Solitary pulmonary nodule Status: Acute Assessment and Plan: CT indicates 4 mm nodules at the lung which could be infectious or inflammatory consider metastatic disease due to left kidney mass Patient will need to reevaluate after completing antibiotic treat (9) Parkinsons disease: Code(s): G20 - Parkinson's disease Status: Chronic Assessment and Plan: PT sto evaluate and treat Subjective Date/time seen: 05/22/21 09:58 This is a 80 year old male that presented to the hospital and was admitted with Acute Kidney injury. Mr Major was found to have a mass on his kidneys mild left hydronephrosis with proximal hydroureter which may be secondary to a mass which is on his left kidneys measuring 11 m. He is being discharged today and will be placed as a swing patient today. He also will be seeing a Urologist today at 10 am. Patient has a past medical history of congestive heart failure, constipation, fusions of the lumbar spine, generalized osteoarthritis, heart murmur, Parkinson's disease, rectal fistula, trigger finger and arthritis. Patient las has continued to improve and his blood pressure has remained soft but he
--- NOTE | 2021-05-22 10:03 | PC.NURSE ---
Pt admitted to swing bed. No change in morning assesment.
[2021-05-22] MEDS: CARBIDOPA/LEVODOPA 25/100 MG TABLET 2 TABLET PO ×3 (13:24→20:27)
[2021-05-22 15:05] VITALS: BP 109/57; PULSE 72; RESP 18; TEMP 36.6; O2SAT 95
[2021-05-22] MEDS: DOCUSATE SODIUM 100 MG CAPSULE PO (16:37)
[2021-05-22] MEDS: DOXYCYCLINE HYCLATE 100 MG TABLET PO (16:37)
[2021-05-22] MEDS: MELATONIN 5 MG TABLET 10 MG PO (20:33)
[2021-05-23] VITALS: BP 88/53; PULSE 75; RESP 20; TEMP 36.2; O2SAT 99
[2021-05-23] MEDS: DOXYCYCLINE HYCLATE 100 MG TABLET PO ×2 (06:09→17:42)
--- NOTE | 2021-05-23 07:38 | PM.EVENT ---
Event Note Event Note Event Note: Patient seen urologist regarding mass noted on kidney and was informed that it is a cyst and they will follow up with a ultrasound in a year and he will return to see urologist .
[2021-05-23 07:45] VITALS: BP 114/58; PULSE 70; RESP 16; TEMP 36.9; O2SAT 98
[2021-05-23] MEDS: CHOLECALCIFEROL 1,000 UNITS TABLET 1000 UNITS PO (08:52)
[2021-05-23] MEDS: DOCUSATE SODIUM 100 MG CAPSULE PO ×2 (08:52→17:42)
[2021-05-23] MEDS: CARBIDOPA/LEVODOPA 25/100 MG TABLET 2 TABLET PO ×4 (08:52→20:51)
[2021-05-23] MEDS: PANTOPRAZOLE 40 MG TABLET PO (08:52)
[2021-05-23] MEDS: metOLazone 2.5 MG TABLET 5 MG PO (08:52)
[2021-05-23] MEDS: polyethylene glycoL 3350 17 GM POWD.PACK PO (08:53)
[2021-05-23] MEDS: ARTIFICIAL TEARS OPHTH SOLN 15 ML BOTTLE 2 DROP EACH EYE ×2 (08:53→17:43)
[2021-05-23] MEDS: MELOXICAM 7.5 MG TABLET PO (08:53)
[2021-05-23] MEDS: BUMETANIDE 1 MG TABLET PO (08:53)
[2021-05-23] MEDS: POTASSIUM CHLORIDE 10 MEQ TABLET PO (08:54)
[2021-05-23 16:40] VITALS: BP 106/52; PULSE 74; RESP 16; TEMP 37.1; O2SAT 98
[2021-05-23] MEDS: MELATONIN 5 MG TABLET 10 MG PO (20:52)
[2021-05-23 23:02] VITALS: BP 106/65; PULSE 73; RESP 16; TEMP 37.2; O2SAT 98
[2021-05-24] MEDS: DOXYCYCLINE HYCLATE 100 MG TABLET PO (05:27)
[2021-05-24 05:29] LABS: Hematocrit 38.1 % (37.0-46.0); Hemoglobin 12.2 g/dL (12.4-15.3); Mean Corpuscular Hemoglobin 34.8 pg (27.0-31.0); Mean Corpuscular Volume 108.5 fL (78.0-102.0); Mean Platelet Volume 10.1 fl (8.7-11.0); Platelet Count Result 197 K/mm3 (150-420); Red Blood Count 3.51 M/mm3 (4.70-6.10); Red Cell Distribution Width 13.2 % (11.6-14.4); White Blood Count 9.7 K/mm3 (4.8-10.8)
[2021-05-24 05:39] LABS: Anion Gap 6 mmol/L (8-16); Blood Urea Nitrogen 33 mg/dL (7-18); Calcium 7.7 mg/dL (8.5-10.1); Carbon Dioxide 32 mmol/L (21-32); Chloride 97 mmol/L (98-108); Estimated Glomerular Filt Rate 58; Glucose 92 mg/dL (70-99); Osmolality Calculated 287 mOsm/kg (285-295); Potassium 3.6 mmol/L (3.5-5.1); Sodium 135 mmol/L (136-145)
--- NOTE | 2021-05-24 07:11 | PM.DS ---
DS: Admitting Diagnosis Discharge Date 05/24/2021 Admitting Diagnosis Acute kidney injury DS: Discharge Diagnosis Discharge Diagnosis (1) Hydronephrosis: Code(s): N13.30 - Unspecified hydronephrosis Status: Acute Assessment and Plan: Hydronephrosis: Code(s): N13.30 - Unspecified hydronephrosis Status: Acute Assessment and Plan: CT of the abdomen and pelvis indicates Mild left hydronephrosis and proximal hydroureter, which may be secondary to mass effect from the distended rectosigmoid. Patient to follow-up with urology on 05/22/2021 at 11:00 PM (2) OLGA (acute kidney injury): Code(s): N17.9 - Acute kidney failure, unspecified Status: Acute Assessment and Plan: Possibly secondary to hydronephrosis and proximal hydroureter caused by a 2 mm stone in the right kidney Improving BUN/Cr 115/2.57>89>1.83 Patient has an appointment with the urologist on 05/22/2021 at 11:00 Follow-up with urologist today (3) Constipation: Qualifiers: Constipation type: other constipation type Qualified Code(s): K59.09 - Other constipation Code(s): K59.00 - Constipation, unspecified Status: Acute Assessment and Plan: Continue stool softeners along with MiraLAX patient given suppository Constipation has improved according to CT of the abdomen BOWEL movement yesterday (4) Pneumonia: Qualifiers: Laterality: right Lung location: unspecified part of lung Pneumonia type: due to unspecified organism Qualified Code(s): J18.9 - Pneumonia, unspecified organism Code(s): J18.9 - Pneumonia, unspecified organism Status: Acute Assessment and Plan: Imaging indicate a right upper and lower lobe pneumonia Patient with Rocephin WBCs and white count within normal limits Patient was discharged home with doxycycline Patient not having any respiratory issues at this time (5) Gait instability: Code(s): R26.81 - Unsteadiness on feet Status: Acute Assessment and Plan: Secondary to Parkinson's Patient will complete PT OT in Swing unit (6) Chronic back pain: Code(s): M54.9 - Dorsalgia, unspecified; G89.29 - Other chronic pain Status: Acute (7) Kidney lesion, [place], left: Code(s): N28.9 - Disorder of kidney and ureter, unspecified Status: Acute Assessment and Plan: Imaging indicates Two left kidney masses measuring up to 11 mm. The larger mass demonstrated peripheral vascular flow on ultrasound and is suspicious for renal cell carcinoma. The smaller mass may be a hemorrhagic cyst or neoplasm. Abdomen CT without and with contrast is recommended. CT with contrast indicates 11 mm left kidney mass without enhancement, consistent with a proteinaceous cyst. Patient has an appointment with urology on 05/22/2021 at 11:00 AM (8) Lung nodule: Code(s): R91.1 - Solitary pulmonary nodule Status: Acute Assessment and Plan: CT indicates 4 mm nodules at the lung which could be infectious or inflammatory consider metastatic disease due to left kidney mass Patient will need to reevaluate after completing antibiotic treat (9) Parkinsons disease: Code(s): G20 - Parkinson's disease Status: Chronic Assessment and Plan: PT sto evaluate and treat DS: Summary Hospital Course Reason for hospitalization: Acute kidney injury Hospital Course: This is a 80-year-old male that that was here as a swing patient for approximately 2 days patient was seen by urologist for a mass on the kidneys according to the urologist he was informed that it was a cyst. Patient was cleared by physical therapy to go home as he needed a walker and was doing well. Patient's BUN and creatinine continue to improve upon discharge his BUN was 34 creatinine was 1.21, white blood count was 9.7, hemoglobin was 12.2, platelets was 197. Patient will go home on all of his regular home medications he was started on Doxy a
[2021-05-24 08:00] VITALS: BP 124/61; PULSE 62; RESP 15; TEMP 36.8; O2SAT 98
[2021-05-24] MEDS: ARTIFICIAL TEARS OPHTH SOLN 15 ML BOTTLE 2 DROP EACH EYE (08:28)
[2021-05-24] MEDS: POTASSIUM CHLORIDE 10 MEQ TABLET PO (08:29)
[2021-05-24] MEDS: metOLazone 2.5 MG TABLET 5 MG PO (08:29)
[2021-05-24] MEDS: DOCUSATE SODIUM 100 MG CAPSULE PO (08:29)
[2021-05-24] MEDS: MELOXICAM 7.5 MG TABLET PO (08:29)
[2021-05-24] MEDS: BUMETANIDE 1 MG TABLET PO (08:29)
[2021-05-24] MEDS: CARBIDOPA/LEVODOPA 25/100 MG TABLET 2 TABLET PO (08:29)
[2021-05-24] MEDS: PANTOPRAZOLE 40 MG TABLET PO (08:30)
[2021-05-24] MEDS: polyethylene glycoL 3350 17 GM POWD.PACK PO (08:30)
[2021-05-24] MEDS: CHOLECALCIFEROL 1,000 UNITS TABLET 1000 UNITS PO (08:32)
--- NOTE | 2021-05-24 09:03 | PC.NURSE ---
Reviewed discharge instructions with patient and . All questions answered. Pt escorted via wheelchair and assisted into private vehicle.
--- NOTE | 2021-05-25 10:14 | PC.NURSE ---
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
[2021-05-27 12:34] LABS: Alanine Aminotransferase 19 U/L (16-63); Albumin Level 2.9 g/dL (3.4-5.0); Alkaline Phosphatase 110 U/L (46-116); Anion Gap 9 mmol/L (8-16); Aspartate Amino Transferase 39 U/L (15-37); Bilirubin,Total 0.5 mg/dL (0.00-1.00); Blood Urea Nitrogen 34 mg/dL (7-18); Calcium 7.9 mg/dL (8.5-10.1); Carbon Dioxide 31 mmol/L (21-32); Chloride 97 mmol/L (98-108); Estimated Glomerular Filt Rate 58; Glucose 69 mg/dL (70-99); Osmolality Calculated 289 mOsm/kg (285-295); Sodium 137 mmol/L (136-145); Total Protein 5.9 g/dL (6.4-8.2)
[2021-05-27 13:45] LABS: Phosphorus 3.9 mg/dL (2.6-4.7)
[2021-05-29 15:15] LABS: Vitamin D 25 Hydroxy 36 ng/mL (30-100)
== END 2021-05-24 09:00 | disposition home or self-care (01) | DRG 56 ==
PROVIDERS: Nurse Practitioner Family; Admitting Provider Internal Medicine; PCP Family Medicine; Visit Provider Internal Medicine
DX: G20 Parkinson's disease (principal); J18.9 Pneumonia, unspecified organism; N17.9 Acute kidney failure, unspecified; N13.2 Hydronephrosis with renal and ureteral calculous obstruction; R26.81 Unsteadiness on feet; M54.9 Dorsalgia, unspecified; G89.29 Other chronic pain; R91.1 Solitary pulmonary nodule
CPT/HCPCS: 36415; 80048; 80053; 82306; 84100; 85027; 97110; 97161; 97165; 97530; 97535; A9270

== ENCOUNTER 2021-06-01 07:41 | Outpatient (CLI) | payer MEDICARE, OTHER, SELFPAY ==
[2021-06-01 08:20] LABS: Alanine Aminotransferase 19 U/L (16-63); Albumin Level 2.9 g/dL (3.4-5.0); Alkaline Phosphatase 75 U/L (46-116); Anion Gap 5 mmol/L (8-16); Aspartate Amino Transferase 43 U/L (15-37); Bilirubin,Total 0.4 mg/dL (0.00-1.00); Blood Urea Nitrogen 43 mg/dL (7-18); Calcium 6.9 mg/dL (8.5-10.1); Carbon Dioxide 32 mmol/L (21-32); Chloride 100 mmol/L (98-108); Estimated Glomerular Filt Rate 54; Glucose 86 mg/dL (70-99); Osmolality Calculated 293 mOsm/kg (285-295); Potassium 3.2 mmol/L (3.5-5.1); Sodium 137 mmol/L (136-145); Total Protein 5.5 g/dL (6.4-8.2)
== END 2021-06-01 07:42 | disposition home or self-care (01) ==
PROVIDERS: PCP Family Medicine; Visit Provider Nurse Practitioner
DX: N17.9 Acute kidney failure, unspecified (principal); G20 Parkinson's disease; J18.9 Pneumonia, unspecified organism; R26.81 Unsteadiness on feet
CPT/HCPCS: 36415; 80053

== ENCOUNTER 2021-06-12 08:31 | Outpatient (CLI) | payer MEDICARE, SELFPAY | END 2021-06-12 08:32 | disposition home or self-care (01) | LOC: CHSLAB 08:32 | PROVIDERS: PCP Family Medicine; Visit Provider Family Medicine | DX: R19.7 Diarrhea, unspecified (principal) | CPT/HCPCS: 87324 ==

== ENCOUNTER 2021-08-06 09:35 | Outpatient (CLI) | payer MEDICARE, OTHER, SELFPAY ==
--- NOTE | ~2021-08-06 | MR_ITS ---
EXAMINATION: MR brain/brain stem wo/w con DATE: 08/06/2021 11:34 INDICATION: Parkinson's disease. Hypertension. TECHNIQUE: Magnetic resonance imaging (MRI) of the brain and brainstem was performed without intraven ous contrast. Sequences included sagittal and axial T1-weighted SE, axial diffusion-weighted FS SE, a xial T2*-weighted GRE, axial T2-weighted FLAIR Propeller, and axial T2-weighted Propeller. Apparent d iffusion coefficient (ADC) maps were created. COMPARISON: CT dated 05/20/2021 and 08/20/2020. FINDINGS: Mild generalized atrophy. There are scattered mild periventricular and subcortical white ma tter changes, most likely related to small vessel ischemic disease (microangiopathy). No ventriculome arie or midline shift. Structures of the posterior fossa including 7/8th cranial nerve complexes are normal. Sinuses are unremarkable. Orbits are symmetric without disconjugate gaze. Midline sagittal im ages demonstrate a normal corpus callosum and craniovertebral junction. No abnormal contrast enhancem ent. No abnormal masses or mass effect. IMPRESSION: 1. No acute intracranial abnormality. 2: Chronic age-related findings. Reviewed, dictated and finalized at location A.
== END 2021-08-06 09:36 | disposition home or self-care (01) ==
LOC: CHSIMG 09:38
PROVIDERS: PCP Family Medicine
DX: H54.7 Unspecified visual loss (principal)
CPT/HCPCS: 70553; A9577

== ENCOUNTER 2021-09-06 19:09 | Inpatient (IN) | payer MEDICARE, OTHER, SELFPAY ==
[2021-09-06] VITALS (9 sets, daily range): BP systolic 120–136; BP diastolic 60–85; PULSE 70–88; RESP 16–20; TEMP 36.3–37; O2SAT 96–99; BMI 25.6
--- NOTE | ~2021-09-06 | XR_ITS ---
XR chest 2V 09/06/2021 20:03 Indication: Shortness of breath. CHF. Procedure: PA and lateral views of the chest Comparison: Comparison to multiple prior studies sequentially, with oldest reviewed study dated 05/29. Findings: There is patchy bilateral airspace disease, consistent with pneumonia. Heart size normal. T here is atherosclerosis of the aorta. No significant pleural effusion or pneumothorax. There are comp ression deformities at the thoracolumbar junction with vertebroplasty changes. Generalized osteopenia . Impression: 1: Patchy bilateral airspace disease, consistent with pneumonia. Reviewed, dictated and finalized at location A. Impression: 1: Patchy bilateral airspace disease, consistent with pneumonia.
--- NOTE | 2021-09-06 19:51 | ECG_ITS ---
Measurements Intervals [place] Rate: 72 P: 58 [place]: 158 QRS: 21 QRSD: 90 T: 51 QT: 359 QTc: 395 Interpretive Statements SINUS RHYTHM VENTRICULAR PREMATURE COMPLEX LOW QRS VOLTAGE IN LIMB LEADS BORDERLINE ECG Electronically Signed On 09-06-2021 20:29:41 CDT by Enrique Dumas D.O.
[2021-09-06 20:16] LABS: Add Urine Microscopic? NO; Appearance Urine Clear (Clear); Bilirubin Urine Negative (Negative); Blood Urine Negative (Negative); Color Urine Yellow (Yellow); Glucose Urine UA Negative (Negative); Ketones Urine Negative (Negative); Leukocyte Esterase Ur Negative LEU/UL (Negative); Nitrate Urine Negative (Negative); Protein Urine Negative (Negative); Specific Grav Ur 1.015 (1.010-1.020); Urobilinogen Urine 0.2 mg/dL (0.2-1.0)
[2021-09-06 20:29] LABS: Basophils Absolute Auto 0.04 K/mm3 (0.00-0.10); Basophils Percent Auto 0.3 % (0.0-1.0); Eosinophils Absolute Auto 0.03 K/mm3 (0.02-0.50); Eosinophils Percent Auto 0.3 % (1.0-6.0); Hematocrit 30.4 % (37.0-46.0); Hemoglobin 9.5 g/dL (12.4-15.3); Immature Granulocyte Absolute 0.05 K/mm3 (0.00-0.00); Immature Granulocyte Percent A 0.4 % (0.0-0.0); Lymphocytes Absolute Auto 1.37 K/mm3 (1.10-4.50); Lymphocytes Percent Auto 11.6 % (18.0-42.0); Mean Corpuscular HGB Conc 31.3 g/dL (32.0-36.0); Mean Corpuscular Hemoglobin 32.6 pg (27.0-31.0); Mean Corpuscular Volume 104.5 fL (78.0-102.0); Monocytes Absolute Auto 1.19 K/mm3 (0.10-0.90); Monocytes Percent Auto 10.1 % (2.0-11.0); Neutrophils Absolute Auto 9.1 K/mm3 (1.7-7.2); Neutrophils Percent Auto 77.3 % (50.0-70.0); Platelet Count Result 221 K/mm3 (150-420); Red Blood Count 2.91 M/mm3 (4.70-6.10); Red Cell Distribution Width 14.5 % (11.6-14.4); White Blood Count 11.8 K/mm3 (4.8-10.8)
[2021-09-06 20:46] LABS: Troponin I 11.7 ng/L (0.00-60.4)
[2021-09-06 20:51] LABS: Albumin Level 2.4 g/dL (3.4-5.0); Alkaline Phosphatase 87 U/L (46-116); Anion Gap 6 mmol/L (8-16); Aspartate Amino Transferase 13 U/L (15-37); Bilirubin,Total 0.9 mg/dL (0.00-1.00); Blood Urea Nitrogen 52 mg/dL (7-18); Calcium 8.1 mg/dL (8.5-10.1); Carbon Dioxide 30 mmol/L (21-32); Chloride 104 mmol/L (98-108); Estimated CRCL calculation 31 ml/min; Estimated Glomerular Filt Rate 42; Glucose 103 mg/dL (70-99); NT Pro B Type Natriuretic Pept 1201 pg/mL (0-450); Osmolality Calculated 304 mOsm/kg (285-295); Potassium 4.6 mmol/L (3.5-5.1); Sodium 140 mmol/L (136-145)
[2021-09-06 20:52] LABS: Alanine Aminotransferase < 6 U/L (16-63)
[2021-09-06] MEDS: ALBUTEROL SULFATE (*SP) INHALER 2 PUFF INHALATION (21:21)
[2021-09-06] MEDS: UMECLIDINIUM BROMIDE 62.5 MCG ELLIPTA 1 PUFF INHALATION (21:21)
[2021-09-06] MEDS: methylPREDNISolone SOD SUCC 125 MG VIAL IV PUSH (21:41)
[2021-09-06] MEDS: AZITHROMYCIN 250 MG TABLET 500 MG PO (21:44)
[2021-09-06] MEDS: SODIUM CHLORIDE 0.9% IV 500 ML 999 ML IV CONT (21:44)
--- NOTE | 2021-09-06 22:08 | PC.NURSE ---
Called Isabella NICOLE at [phone] left message, again at [phone] left message, [phone] spoke to emily, will call back soon
[2021-09-06 22:18] LABS: Strep Group A RT-PCR Negative (Negative)
--- NOTE | 2021-09-06 22:18 | ED.SOB ---
HPI - SOB/Dyspnea General Chief Complaint: Shortness of Breath/Dyspnea Stated Complaint: fatigue, sob Time Seen by Provider: 09/06/21 19:13 Source: patient and RN notes reviewed Mode of arrival: wheelchair Limitations: no limitations History of Present Illness HPI Narrative: Increasing SOB x 3 days MD elicited complaint: shortness of breath and cough Pertinent past history: COPD and congestive heart failure Onset (ago): day(s) (3) Timing: progressively worsening Severity: moderate Exacerbating factors: nothing and coughing Relieving factors: bronchodilators Known history of: COPD and congestive heart failure Associated symptoms: chest pain, cough and wheezing Treatment prior to arrival: bronchodilator Related Data Home Medications Medication Instructions Recorded Confirmed uxlctm-[id number] 2 cap PO BID 08/15/19 09/06/21 12,000-38,000-60,000 unit capsule,delayed rel (Creon) cholecalciferol (vitamin D3) 125 125 mcg PO DAILY 05/28/20 09/06/21 mcg (5,000 unit) capsule calcitriol 0.25 mcg capsule 0.25 mcg PO DAILY 05/15/21 09/06/21 carbidopa 25 mg-levodopa 100 mg 2 tablet PO QID 05/15/21 09/06/21 tablet melatonin 10 mg capsule 10 mg PO QHS 05/15/21 09/06/21 artificial 2 drp EACH EYE BID 05/22/21 09/06/21 tears(fugpgpn-ykdnlrjc-wpvquwn) 0.1 %-0.3 %-0.2 % eye drops (GenTeal Tears Moderate) amlodipine 10 mg tablet 10 mg PO DAILY 06/14/21 09/06/21 Allergies Allergy/AdvReac Type Severity Reaction Status Date / Time adhesive Allergy Intermediate Unknown Verified 09/12/21 07:57 adhesive tape Allergy Unknown rash Verified 09/12/21 07:57 Review of Systems Review of Systems: All systems reviewed & are unremarkable except as noted in HPI and below Constitutional: Constitutional: Reports no additional constitutional complaints Eyes: Eyes: Reports no additional eye complaints ENT: Reports system reviewed and no additional complaints, except as documented Cardiovascular: Cardiovascular: Reports no additional cardiovascular complaints Respiratory: Respiratory: Reports dyspnea and Reports wheezing Gastrointestinal: Gastrointestinal: Reports no additional gastrointestinal complaints Musculoskeletal: Musculoskeletal: Reports no additional musculoskeletal complaints Integumentary/Breasts: Skin/Breast: Reports system reviewed and no additional complaints, except as docu Neurologic: Reports system reviewed and no additional complaints, except as documented Psychiatric: Psychiatric: Reports no additional psychiatric complaints Endocrine: Endocrine: Reports no additional endocrine complaints Hematologic/Lymphatic: Hematologic/Lymphatic: Reports no additional hematologic/lymphatic complaints Allergic/Immunologic: Allergic/Immunologic: Reports no additional allergic/immunologic complaints PMFSH Past Medical History Medical History Arthritis CHF (congestive heart failure) Constipation Constipation Fusion of lumbar spine Generalized osteoarthritis Heart murmur Parkinsons disease Rectal fistula Trigger finger Surgical History Surgical History H/O hernia repair umbilical H/O repair of rotator cuff bilateral History of back surgery L3-:4 History of bilateral knee arthroplasty History of carpal tunnel release bilateral History of cataract surgery S/P biliopancreatic diversion with duodenal switch Family History Family History Mother Renal failure Father Burn Sibling Acute myocardial infarction Hypertension Other Family history of alcoholism Family history of arthritis Family history of glaucoma Family history of hearing loss Social History Social History Smoking packs per day: 1 Smoking cigarettes per day: 20.0 Years smoked: 7 Smok
[2021-09-06 22:31] LABS: Influenza A QL RT-PCR Negative (Negative); Influenza B QL RT-PCR Negative (Negative); SARS-CoV-2 RNA PCR Negative (Negative)
--- NOTE | 2021-09-06 23:23 | ADMGEN ---
This patient, Zachery Major, was admitted to 2nd Floor Room 205-1. Patient oriented to hospital policies and general routines including ID bracelet, bed and alarms, visiting hours, pain management, procedures, bathroom and other care routines, personal items, smoking policy, room service/diet, and visiting hours. Information on how to activate the Rapid Response Team has been discussed. Patient are encouraged to report perceived risks to care and to ask questions if they do not understand what they are told or what they should do.
--- NOTE | 2021-09-06 23:24 | PC.NURSE ---
[id number] Emily Mckeon called back to get report
[2021-09-07 03:38] VITALS: PULSE 64
[2021-09-07 04:00] VITALS: BP 116/65; PULSE 74; RESP 16; TEMP 36.4; O2SAT 95
[2021-09-07 07:58] VITALS: BP 96/60; PULSE 69; RESP 14; TEMP 36.2; O2SAT 93
[2021-09-07 08:00] VITALS: PULSE 73
[2021-09-07] MEDS: UMECLIDINIUM BROMIDE 62.5 MCG ELLIPTA 1 PUFF INHALATION (08:48)
--- NOTE | 2021-09-07 10:01 | PM.SD2 ---
Same Day Admit/Disch: HPI History of Present Illness Chief complaint: fatigue, sob Narrative: Zachery Major is a 80 year old male that presented to the emergency department with complaints of shortness of breath that he had had for approximately 1 week in weakness and fatigue. Patient has a past medical history of arthritis, congestive heart failure, constipation, fusion of the lumbar spine, heart murmur, Parkinson's disease, rectal fistula, and trigger finger. According to patient for approximately 1 week he has experienced shortness of breath that worsened which required him to come to our emergency department. Patient notes that when he would ambulate a short distance he became extremely short of breath and very fatigued. Patient did not do anything at home to relieve the symptoms. Vital signs 97.1, 73, 14, 93% on room air, 96/60, WBCs 11.8, hemoglobin 9.5, hematocrit 30.4, sodium 140, potassium 4.6, BUN 53, creatinine 1.59, glucose 103, total bilirubin 0.9, AST 13, ALT less than 6, BNP 02/11/2000, urine within normal limits, influenza and COVID-negative chest x-ray indicated pneumonia EKG sinus rhythm with a heart rate of 72. Patient being admitted for respiratory distress due to pneumonia. Patient condition has improved he is currently on room air. Patient notes that his symptoms have resolved he will go home with antibiotics for the treatment of his pneumonia, steroids Solu-Medrol, and inhalers with cough suppression. Patient agrees he is ready for discharge. He was able to ambulate from his bed to the restroom with no difficulties. The patient denies CP, palpitation, extremity numbness, lightheadedness, dizziness, constipation, diarrhea, chills, or fever. [facility] Past Medical History Medical History Arthritis CHF (congestive heart failure) Constipation Constipation Fusion of lumbar spine Generalized osteoarthritis Heart murmur Parkinsons disease Rectal fistula Trigger finger Surgical History Surgical History H/O hernia repair umbilical H/O repair of rotator cuff bilateral History of back surgery L3-:4 History of bilateral knee arthroplasty History of carpal tunnel release bilateral History of cataract surgery S/P biliopancreatic diversion with duodenal switch Family History Family History Mother Renal failure Father Burn Sibling Acute myocardial infarction Hypertension Other Family history of alcoholism Family history of arthritis Family history of glaucoma Family history of hearing loss Social History Social History (Updated 06/03/21 @ 07:13 by Carmen Steiner) Smoking packs per day: 1 Smoking cigarettes per day: 20.0 Years smoked: 7 Smoking pack-years: 7.00 Smoking status: Former smoker Tobacco type: cigarettes Second hand tobacco smoke exposure: No Smoking end date: 05/10/98 Alcohol intake: never Substance use: current Substance use type: painkillers Spiritual care concerns: No Same Day Admit/Disch: Med Pre-admit Medications Home Medications Medication Instructions Recorded Confirmed Type xxdryw-mpscerwv-cgfxpse 2 cap PO BID 08/15/19 09/06/21 History 12,000-38,000-60,000 unit capsule,delayed rel (Creon) calcium carbonate 600 mg calcium 600 mg PO BID #180 tabs 04/09/20 09/06/21 Rx (1,500 mg) tablet (Calcium) sildenafil (pulm.hypertension) 20 20 mg PO ONCE PRN Hypertension #90 04/09/20 09/06/21 Rx mg tablet tabs cholecalciferol (vitamin D3) 125 125 mcg PO DAILY 05/28/20 09/06/21 History mcg (5,000 unit) capsule meloxicam 15 mg tablet See Rx Instructions .Route 03/27/21 09/06/21 Rx .COMPLEX #90 tabs calcitriol 0.25 mcg capsule 0.25 mcg PO DAILY 05/15/21 09/06/21 History carbidopa 25 mg-levodopa 100 mg 2 tablet PO QID 05/15/21 09/06/21 History tablet melatonin
[2021-09-07 10:06] LABS: Hematocrit 33.5 % (37.0-46.0); Hemoglobin 10.4 g/dL (12.4-15.3); Mean Corpuscular Hemoglobin 32.4 pg (27.0-31.0); Mean Corpuscular Volume 104.4 fL (78.0-102.0); Mean Platelet Volume 10.1 fl (8.7-11.0); Platelet Count Result 238 K/mm3 (150-420); Red Blood Count 3.21 M/mm3 (4.70-6.10); Red Cell Distribution Width 14.4 % (11.6-14.4); White Blood Count 8.5 K/mm3 (4.8-10.8)
[2021-09-07 10:21] LABS: Alanine Aminotransferase 16 U/L (16-63); Albumin Level 2.4 g/dL (3.4-5.0); Alkaline Phosphatase 87 U/L (46-116); Anion Gap 9 mmol/L (8-16); Aspartate Amino Transferase 11 U/L (15-37); Bilirubin,Total 0.4 mg/dL (0.00-1.00); Blood Urea Nitrogen 43 mg/dL (7-18); Calcium 7.9 mg/dL (8.5-10.1); Carbon Dioxide 28 mmol/L (21-32); Chloride 103 mmol/L (98-108); Estimated CRCL calculation 33 ml/min; Estimated Glomerular Filt Rate 45; Glucose 190 mg/dL (70-99); Osmolality Calculated 305 mOsm/kg (285-295); Potassium 3.7 mmol/L (3.5-5.1); Sodium 140 mmol/L (136-145); Total Protein 6.6 g/dL (6.4-8.2)
--- NOTE | 2021-09-09 12:25 | PC.NURSE ---
Pt states he recevied and understood his discharge instructions. Pt also states I was cared for very well .
== END 2021-09-07 11:40 | disposition home or self-care (01) | DRG 194 ==
LOC: CHSED 22:26 → CHS2ND 22:30
PROVIDERS: Nurse Practitioner; Admitting Provider Internal Medicine; Emergency Provider Emergency Medicine; PCP Family Medicine; Visit Provider Internal Medicine
DX: J44.0 Chronic obstructive pulmonary disease with (acute) lower respiratory infection (principal); J18.9 Pneumonia, unspecified organism; J44.1 Chronic obstructive pulmonary disease with (acute) exacerbation; N17.9 Acute kidney failure, unspecified; I50.9 Heart failure, unspecified; Z98.1 Arthrodesis status; G20 Parkinson's disease; R01.1 Cardiac murmur, unspecified; M15.9 Polyosteoarthritis, unspecified; Z96.653 Presence of artificial knee joint, bilateral; Z20.822 Contact with and (suspected) exposure to COVID-19; Z87.891 Personal history of nicotine dependence; K59.00 Constipation, unspecified; K21.9 Gastro-esophageal reflux disease without esophagitis
CPT/HCPCS: 36415; 71046; 80053; 81003; 83880; 84484; 85025; 85027; 87040; 87502; 87651; 93005; 94640; 96365; 96375; 99285; A9270; C9803; J0696; J2930; J7040; U0003; U0005

== ENCOUNTER 2021-11-05 00:32 | Emergency (ER) | payer MEDICARE, OTHER, SELFPAY ==
[2021-11-05] VITALS (20 sets, daily range): BP systolic 92–136; BP diastolic 48–69; PULSE 66–75; RESP 15–26; TEMP 36.2–36.3; O2SAT 92–100
--- NOTE | ~2021-11-05 | CT_ITS ---
EXAMINATION: CTA chest PE protocol DATE: 11/05/2021 02:49 INDICATION: Shortness of breath. Hemoptysis. TECHNIQUE: Computed tomography angiography (CTA) of the chest was performed with 100 mL Omnipaque-350 intravenous contrast timed to evaluate the pulmonary arteries. Coronal maximum intensity projection 3D-reconstructions were created by the technologist. Automated exposure control and iterative reconst ruction technique were employed. The dose-length product was 278.48 mGy-cm. COMPARISON: Chest CT 05/20/2021 FINDINGS: Motion artifact is noted. There is chronic septal thickening in the lungs with architectura l distortion. There are airspace opacities in superior segment left lower lobe, consistent with pneum onia. There is a chronic 4 mm nodule left upper lobe, likely benign. A calcified left lung nodule and calcified left hilar lymph nodes are consistent with old granulomatous disease. There is a trace lef t pleural effusion. The heart size is normal. There are coronary artery calcifications. There are gina cifications of aortic valve. There is no pulmonary embolus. There is mild left hilar lymphadenopathy. There are surgical changes of the stomach. There are changes of cholecystectomy. There is a chronic burst fracture of inferior endplate of T2 with less than 1/5 loss of height. There is a chronic burst fracture of T12 with changes of vertebroplasty. There is mild chronic anterior wedging of L1 with ch anges of vertebroplasty. There is mild thoracic spondylosis. IMPRESSION: 1. No pulmonary embolus. Sensitivity is moderately decreased by motion artifact. 2. Pneumonia in superior segment left lower lobe. 3. Mild left hilar lymphadenopathy, likely reactive. 4. Mild chronic lung disease. Reviewed, dictated and finalized at location A. IMPRESSION: 1. No pulmonary embolus. Sensitivity is moderately decreased by motion artifact . 2. Pneumonia in superior segment left lower lobe. 3. Mild left hilar lymphadenopathy, likely reactive. 4. Mild chronic lung disease.
--- NOTE | ~2021-11-05 | XR_ITS ---
EXAMINATION: XR chest 1V portable DATE: 11/05/2021 00:57 INDICATION: Hemoptysis. Shortness of breath. TECHNIQUE: A single frontal view of the chest was obtained. COMPARISON: Chest 2 views 09/06/2021, chest CT 11/05/2021 FINDINGS: There are airspace opacities in superior segment left lower lobe, consistent with pneumonia . There are interstitial opacities in the mid and lower lung zones. No pleural effusion or pneumothor ax. The heart size is normal. IMPRESSION: 1. Airspace opacities in superior segment left lower lobe, consistent with pneumonia. 2. Interstitial opacities in the mid and lower lung zones, consistent with mild chronic interstitial lung disease. Reviewed, dictated and finalized at location A. IMPRESSION: 1. Airspace opacities in superior segment left lower lobe, consistent with pneu monia. 2. Interstitial opacities in the mid and lower lung zones, consistent with mild chronic interstitial lung disease.
--- NOTE | 2021-11-05 00:42 | ED.SOB ---
HPI - SOB/Dyspnea General Chief Complaint: Shortness of Breath/Dyspnea Stated Complaint: SOB Time Seen by Provider: 11/05/21 00:42 History of Present Illness HPI Narrative: 81-year-old male patient is here with the with complaints of full coughing up some blood this evening. Patient states that he had some laser surgery to the eye at [facility] since [place] today and this evening he had a bout of cough with some bloody sputum. He denies any associated chest pain. He does admit to being short of breath. Patient denies any chronic cough or wheezing. Patient's states that he has COPD however the patient denies that. He is not on any home oxygen and or any nebulizer treatments. He has a history of smoking in the past and has had no cigarettes for the last 20 years. Patient does have history of congestive heart failure according to the and he is on metolazone and Bumex. Patient denies any chest pain. He denies any runny nose or any exposure to COVID. His COVID vaccinated but has not had his Bolesta dose yet. Related Data Home Medications Medication Instructions Recorded Confirmed [id number]-dbznenbw-aqlyksl 2 cap PO BID 08/15/19 11/05/21 12,000-38,000-60,000 unit capsule,delayed rel (Creon) cholecalciferol (vitamin D3) 125 125 mcg PO DAILY 05/28/20 11/05/21 mcg (5,000 unit) capsule carbidopa 25 mg-levodopa 100 mg 2 tablet PO QID 05/15/21 11/05/21 tablet melatonin 10 mg capsule 10 mg PO QHS 05/15/21 11/05/21 clonazepam 0.5 mg tablet 0.5 mg PO HS 11/05/21 11/05/21 ketorolac 0.5 % eye drops 1 drp EACH EYE QID 11/05/21 11/05/21 testosterone 20.25 mg/1.25 gram 3 pump topical DAILY 11/05/21 11/05/21 (1.62 %) transdermal gel pump Allergies Allergy/AdvReac Type Severity Reaction Status Date / Time adhesive Allergy Intermediate Unknown Verified 09/12/21 07:57 adhesive tape Allergy Unknown rash Verified 09/12/21 07:57 Review of Systems Review of Systems: All systems reviewed & are unremarkable except as noted in HPI and below Constitutional: Constitutional: Reports no additional constitutional complaints, Denies chills, Denies fatigue, Denies fever(s), Denies headache(s), Denies malaise and Denies weakness Eyes: Eyes: Reports no additional eye complaints ENT: Reports system reviewed and no additional complaints, except as documented Cardiovascular: Cardiovascular: Reports no additional cardiovascular complaints Respiratory: Respiratory: Reports as per HPI Gastrointestinal: Gastrointestinal: Reports no additional gastrointestinal complaints Genitourinary: Genitourinary: Reports no additional male genitourinary complaints Musculoskeletal: Musculoskeletal: Reports no additional musculoskeletal complaints Integumentary/Breasts: Skin/Breast: Reports system reviewed and no additional complaints, except as docu Neurologic: Reports system reviewed and no additional complaints, except as documented Psychiatric: Psychiatric: Reports no additional psychiatric complaints Endocrine: Endocrine: Reports no additional endocrine complaints Hematologic/Lymphatic: Hematologic/Lymphatic: Reports no additional hematologic/lymphatic complaints PMFSH Past Medical History Medical History Arthritis CHF (congestive heart failure) Constipation Constipation Fusion of lumbar spine Generalized osteoarthritis Heart murmur Parkinsons disease Rectal fistula Trigger finger Surgical History Surgical History H/O hernia repair umbilical H/O repair of rotator cuff bilateral History of back surgery L3-:4 History of bilateral knee arthroplasty History of carpal tunnel release bilateral History of cataract surgery S/P biliopancreatic diversion with duodenal switch Family History Family History Mother Renal failure Father Burn Sibling Acute
[2021-11-05] MEDS: IPRATROPIUM 0.5 MG/ALBUTEROL SULFATE 2.5 MG AMPUL.NEB 3 ML INHALATION (00:57)
[2021-11-05 01:09] LABS: Base Excess ABG -1.1 mmol/L (0-2); HCO3 ABG 23.5 mmol/L (23-29); Oxygen Content ABG 12.6 %vol (16.0-22.0); Oxygen Saturation ABG 92.1 % (95-97); Oxyhemoglobin 92.1 % (94-100); PCO2 ABG 38.4 mmHg (35-45); PO2 ABG 113.4 mmHg (75-85); Total Hemoglobin 9.6 g/dL (12.0-18.0)
[2021-11-05 01:15] LABS: Basophils Absolute Auto 0.06 K/mm3 (0.00-0.10); Basophils Percent Auto 0.7 % (0.0-1.0); Eosinophils Absolute Auto 0.13 K/mm3 (0.02-0.50); Eosinophils Percent Auto 1.5 % (1.0-6.0); Hematocrit 31.8 % (37.0-46.0); Hemoglobin 9.7 g/dL (12.4-15.3); Immature Granulocyte Percent A 1.2 % (0.0-0.0); Lymphocytes Percent Auto 17.4 % (18.0-42.0); Mean Corpuscular HGB Conc 30.5 g/dL (32.0-36.0); Mean Corpuscular Hemoglobin 32.1 pg (27.0-31.0); Mean Corpuscular Volume 105.3 fL (78.0-102.0); Mean Platelet Volume 10.2 fl (8.7-11.0); Monocytes Absolute Auto 0.84 K/mm3 (0.10-0.90); Monocytes Percent Auto 9.7 % (2.0-11.0); Neutrophils Percent Auto 69.5 % (50.0-70.0); Platelet Count Result 228 K/mm3 (150-420); Red Blood Count 3.02 M/mm3 (4.70-6.10); Red Cell Distribution Width 14.6 % (11.6-14.4); White Blood Count 8.6 K/mm3 (4.8-10.8)
[2021-11-05 01:38] LABS: Albumin Level 2.5 g/dL (3.4-5.0); Alkaline Phosphatase 97 U/L (46-116); Anion Gap 4 mmol/L (8-16); Aspartate Amino Transferase 15 U/L (15-37); Bilirubin,Total 0.5 mg/dL (0.00-1.00); Blood Urea Nitrogen 41 mg/dL (7-18); Calcium 7.7 mg/dL (8.5-10.1); Carbon Dioxide 29 mmol/L (21-32); Chloride 103 mmol/L (98-108); Estimated CRCL calculation 27 ml/min; Estimated Glomerular Filt Rate 42; Glucose 90 mg/dL (70-99); NT Pro B Type Natriuretic Pept 854 pg/mL (0-450); Osmolality Calculated 292 mOsm/kg (285-295); Potassium 3.4 mmol/L (3.5-5.1); Sodium 136 mmol/L (136-145); Total Protein 6.3 g/dL (6.4-8.2)
[2021-11-05 01:40] LABS: INR 1.3; Partial Thromboplastin Time 31.9 SEC (23.90-30.70); Prothrombin Time 13.7 Seconds (9.50-12.10)
[2021-11-05 01:49] LABS: SARS-CoV-2 RNA PCR Negative (Negative)
[2021-11-05 01:54] LABS: Device NASAL CANNULA; Modified Allen's Test Pass; Site Drawn RIGHT RADIAL
[2021-11-05 01:56] LABS: Alanine Aminotransferase 8 U/L (16-63)
[2021-11-05 01:57] LABS: D Dimer 1.12 mg/L (0.19-0.50)
[2021-11-05 02:05] LABS: Add Urine Microscopic? NO; Appearance Urine Clear (Clear); Bilirubin Urine Negative (Negative); Blood Urine Negative (Negative); Color Urine Light Yellow (Yellow); Glucose Urine UA Negative (Negative); Ketones Urine Negative (Negative); Leukocyte Esterase Ur Negative (Negative); Nitrate Urine Negative (Negative); Protein Urine Negative (Negative); Specific Grav Ur 1.015 (1.010-1.020); Urobilinogen Urine 0.2 mg/dL (0.2-1.0)
[2021-11-05] MEDS: POTASSIUM CHLORIDE 20 MEQ TABLET PO (02:48)
--- NOTE | 2021-11-05 04:06 | PC.NURSE ---
Pt resting comfortably, VSS, monitor SR, POC and tests discussed c pt and for d/c home.
== END 2021-11-05 04:28 | disposition home or self-care (01) ==
PROVIDERS: Emergency Provider Emergency Medicine; PCP Family Medicine
DX: J40 Bronchitis, not specified as acute or chronic (principal); J44.9 Chronic obstructive pulmonary disease, unspecified; R06.02 Shortness of breath; I50.9 Heart failure, unspecified; M19.90 Unspecified osteoarthritis, unspecified site; G20 Parkinson's disease; Z87.891 Personal history of nicotine dependence; Z20.822 Contact with and (suspected) exposure to COVID-19
CPT/HCPCS: 36415; 36600; 71045; 71275; 80053; 81003; 82805; 83880; 85025; 85380; 85610; 85730; 94640; 99284; A9270; C9803; Q9967; U0003; U0005

== ENCOUNTER 2021-11-22 09:34 | Outpatient (CLI) | payer MEDICARE, OTHER, SELFPAY ==
--- NOTE | ~2021-11-22 | CT_ITS ---
EXAMINATION: CT abdomen pelvis wo con DATE: 11/22/2021 09:54 INDICATION: Left lower quadrant pain TECHNIQUE: Computed tomography (CT) of the abdomen and pelvis was performed without intravenous contr ast. The dose-length product (DLP) was 497.67 mGy-cm. Automated exposure control and iterative recons truction technique were employed. COMPARISON: 05/21/2021 FINDINGS: There are minimal airspace opacities of the visualized lung bases, infectious versus inflam matory. The heart size is normal. Calcified coronary artery atherosclerosis is noted. Surgical change s are noted in the stomach. The gallbladder is surgically absent. The liver, spleen, pancreas, and ad renal glands are normal. Again noted is an 11 mm proteinaceous cyst of the left kidney. There is a 6 mm simple cyst of the left kidney. A large volume of colonic stool is present. No pathologically enla rged abdominal or pelvic lymph nodes are identified. There is no free intraperitoneal gas or evidence of bowel obstruction. There is severe lumbar spondylosis. There is vertebroplasty change at T12, L1, and L2. IMPRESSION: 1. Constipation. Reviewed, dictated and finalized at location F. IMPRESSION: 1. Constipation.
== END 2021-11-22 09:35 | disposition home or self-care (01) ==
LOC: CHSIMG 09:35
PROVIDERS: PCP Family Medicine; Visit Provider Family Medicine
DX: R10.32 Left lower quadrant pain (principal)
CPT/HCPCS: 74176

== ENCOUNTER 2021-12-03 09:56 | Outpatient (CLI) | payer MEDICARE, OTHER, SELFPAY ==
--- NOTE | ~2021-12-03 | XR_ITS ---
XR hip LT min 3V w AP pelvis DATE: 12/03/2021 10:31 INDICATION: Left hip pain TECHNIQUE: AP pelvis. AP and lateral views of left hip. COMPARISON: None FINDINGS: There is osteopenia. There is dextroscoliosis and moderate degenerative disc disease of the mid and lower lumbar spine. Normal alignment at the pubic symphysis and sacroiliac joints. No pelvic fracture or bone destruction is evident. No fracture, dislocation, avascular necrosis or bone destruction of the left hip is detected. IMPRESSION: Osteopenia Reviewed, dictated and finalized at location A. IMPRESSION: Osteopenia
== END 2021-12-03 09:57 | disposition home or self-care (01) ==
PROVIDERS: PCP Family Medicine; Visit Provider Family Medicine
DX: M25.552 Pain in left hip (principal)
CPT/HCPCS: 73502

== ENCOUNTER 2021-12-04 15:02 | Outpatient (CLI) | payer MEDICARE, OTHER, SELFPAY ==
[2021-12-04 15:52] LABS: Occult Blood Negative (Negative)
== END 2021-12-04 15:03 | disposition home or self-care (01) ==
PROVIDERS: PCP Family Medicine; Visit Provider Family Medicine
DX: K59.00 Constipation, unspecified (principal)
CPT/HCPCS: 82272

== ENCOUNTER 2021-12-26 06:47 | Outpatient (CLI) | payer MEDICARE, OTHER, SELFPAY ==
--- NOTE | ~2021-12-26 | MR_ITS ---
EXAMINATION: MR lumbar spine wo con DATE: 12/26/2021 09:10 INDICATION: Severe low back pain. TECHNIQUE: Magnetic resonance imaging (MRI) of the lumbar spine was performed without intravenous con trast. COMPARISON: Lumbar spine MRI 09/30/2014 FINDINGS: There is mild chronic anterior wedging of T10 and T11 vertebral bodies. There is a chronic burst fracture of T12 with 2/5 loss of height and changes of vertebroplasty. There is a chronic compr ession fracture of L1 with 1/5 loss of height and changes of vertebroplasty. There is a chronic compr ession fracture of L2 with 3/5 loss of height and changes of vertebroplasty. There is mild chronic he ight loss of L5 vertebral body posteriorly. There is kyphosis of thoracolumbar spine. There is modera tely decreased disc height at L1-L2 and L2-L3, mildly decreased disc height at L3-L4, moderately decr eased disc height at L4-L5, and severely decreased disc height at L5-S1 with endplate remodeling. The re are cysts in the kidneys measuring up to 1.8 cm on the right. The following disc levels are specif ically discussed: L1-L2: The disc is bulging. There is mild bilateral facet joint osteoarthritis. There is mild bilater al neural foraminal stenosis. There is mild central canal stenosis. L2-L3: The disc is bulging. There is moderate bilateral facet joint osteoarthritis. There is mild kareen ateral neural foraminal stenosis. There is mild central canal stenosis. L3-L4: The disc is bulging. There is mild right and moderate left facet joint osteoarthritis. There i s mild bilateral neural foraminal stenosis. There is mild central canal stenosis. L4-L5: The disc is bulging and has an annular fissure. There is mild bilateral facet joint osteoarthr itis. There is moderate right and mild left neural foraminal stenosis. There is mild central canal st enosis. L5-S1: The disc is bulging and has an annular fissure. There is severe right and moderate left facet joint osteoarthritis. There is mild bilateral neural foraminal stenosis. There is mild central canal stenosis. IMPRESSION: 1. Severe lumbar spondylosis, similar to 09/30/2014. Reviewed, dictated and finalized at location A. ERCIAL PAINTER
== END 2021-12-26 06:48 | disposition home or self-care (01) ==
LOC: CHSIMG 06:48
PROVIDERS: PCP Family Medicine; Visit Provider Orthopaedic Surgery
DX: M47.816 Spondylosis without myelopathy or radiculopathy, lumbar region (principal)
CPT/HCPCS: 72148

== ENCOUNTER 2022-01-09 10:13 | Outpatient (CLI) | payer MEDICARE, OTHER, SELFPAY ==
--- NOTE | ~2022-01-09 | MR_ITS ---
EXAMINATION: MR hip LT wo con DATE: 01/09/2022 11:29 INDICATION: Left hip pain. TECHNIQUE: Magnetic resonance imaging (MRI) of the left hip was performed without intravenous contras t. COMPARISON: Pelvis and left hip radiograph 12/03/2021, CT abdomen and pelvis 11/22/2021 FINDINGS: Bones/cartilage: Bone alignment is normal. No fracture. There is mild osteoarthritis of the hips. There is moderate denia mbar spondylosis. There is fat replacement of the bone marrow. There are scattered areas of increased T2-weighted signal intensity in the bone marrow involving all bones. These areas demonstrate decreas ed T1-weighted signal intensity relative to fat-replaced marrow, but increased T1-weighted signal int ensity relative to muscle. There is no abnormal CT correlate. These areas likely represent sparing of marrow fat replacement. Labrum: There is a tear of the left acetabular labrum. Fluid: There is no hip joint effusion. There is mild right trochanteric bursitis. Soft tissues: Stool distends the rectosigmoid. There is moderate tendinopathy of right hamstring origin. The iliops oas tendons are normal. The gluteus membranous and gluteus medius tendons are normal. There is symmet miguel angel edema at the junction of the iliacus muscles with the iliac bones bilaterally. There is a left ob turator hernia containing a portion of the bladder. There is a left inguinal hernia containing fat. IMPRESSION: 1. Mild osteoarthritis of the hips. 2. Stool distends the rectosigmoid. 3. Left obturator hernia containing a portion of the bladder. 4. Left inguinal hernia containing fat. Reviewed, dictated and finalized at location A. 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
== END 2022-01-09 10:14 | disposition home or self-care (01) ==
LOC: CHSIMG 10:15
PROVIDERS: PCP Family Medicine; Visit Provider Orthopaedic Surgery
DX: M25.552 Pain in left hip (principal)
CPT/HCPCS: 73721

== ENCOUNTER 2022-02-20 12:19 | Outpatient (CLI) | payer MEDICARE, OTHER, SELFPAY ==
[2022-02-20 12:39] VITALS: BMI 25.6
[2022-02-20 12:45] VITALS: BP 92/56; PULSE 72; RESP 14; TEMP 36; O2SAT 99
[2022-02-20] MEDS: SODIUM CHLORIDE 0.9% IVPB (13:00)
[2022-02-20] MEDS: ZOLEDRONIC ACID IVPB (13:00)
--- NOTE | 2022-02-20 13:16 | PC.NURSE ---
Patient here for yearly IV Reclast infusion. Education given. All concerns answered. IV Reclast administered. SEE MAR. Tolerated well. Safe exit of hospital per wc.
== END 2022-02-20 12:20 | disposition home or self-care (01) ==
LOC: CHSTREATRM 12:22
PROVIDERS: PCP Family Medicine
DX: N18.9 Chronic kidney disease, unspecified (principal)
CPT/HCPCS: 96365; J3489

== ENCOUNTER 2022-02-26 09:49 | Outpatient (CLI) | payer MEDICARE, OTHER, SELFPAY ==
--- NOTE | ~2022-02-26 | NM_ITS ---
EXAMINATION: NM mack stress w perfusion DATE: 02/26/2022 15:19 INDICATION: Other forms of dyspnea. TECHNIQUE: Rest images were obtained following intravenous administration of 10.4 mCi Tc99m tetrofosm in (Myoview). The patient was infused intravenously with Lexiscan (regadenoson). Then, 33.5 mCi Tc99m tetrofosmin (Myoview) was administered intravenously, and stress images were obtained. Data was mingo nstructed into short axis and horizontal and vertical long axis SPECT images. Gated SPECT images were also obtained. COMPARISON: CT abdomen and pelvis 11/22/2021 FINDINGS: There is a large, severe, partially reversible perfusion defect involving left ventricular apex, the apical segments, and mid to basal inferolateral segments of left ventricle, consistent with mixed infarct and ischemia. There is no segmental wall motion abnormality. Left ventricular ejectio n fraction measures 70%. IMPRESSION: 1. 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 2. Normal left ventricular ejection fraction measuring 70%. Reviewed, dictated and finalized at location A. 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 Large area of severe mixed infarct and ischemia involving left ventricular a pex, the apical segments, and mid to basal inferolateral segments of left ventr icle. 2. Normal left ventricular ejection fraction measuring 70%.
--- NOTE | 2022-02-26 10:34 | EST_ITS ---
Patient Info Name: Zachery Major Age: 81 years : 1940 Gender: Male Ht: 69 in Wt: 137 lbs BSA: 1.73 m2 HR: 66 bpm BP: 155 / 78 mmHg Heart Rhythm: Sinus Rhythm Exam Date: 02/26/2022 11:26 AM Exam Location: [facility] Stress Patient Status: Outpatient Admit Date: 02/26/2022 Staff Ordering Physician: Enrique Dumas DO Attending Provider: Enrique Dumas DO Exercise Technologist: Sofi Del Rio CT Exercise Physician: Enrique Dumas DO Exam Type: CA stress mack w NM Study Info Indications R06.09 - Other forms of dyspnea A regadenoson stress test was performed. Summary 1. 1. Negative lexiscan stress test for ischemic ST changes by ECG criteria. 2. 2. Baseline hypertension. 3. 3. Nuclear scan to follow and will be reported separately. Please correlate with it. 4. 4. Patient informed of the above results. Protocol: Lexiscan Stress ECG Details Stage: REST Duration (min): 1 min : 28 sec HR (bpm): 66 SBP (mmHg): 155 DBP (mmHg): 78 Stage: REST Duration (min): 4 min : 59 sec HR (bpm): 69 SBP (mmHg): 155 DBP (mmHg): 78 Stage: STAGE 1 Duration (min): 0 min : 59 sec HR (bpm): 71 SBP (mmHg): 155 DBP (mmHg): 78 Stage: RECOVERY Duration (min): 1 min : 0 sec HR (bpm): 75 SBP (mmHg): 146 DBP (mmHg): 64 Stage: RECOVERY Duration (min): 2 min : 0 sec HR (bpm): 76 SBP (mmHg): 146 DBP (mmHg): 64 Stage: RECOVERY Duration (min): 3 min : 0 sec HR (bpm): 76 SBP (mmHg): 132 DBP (mmHg): 63 Rest HR: 69 bpm Peak HR: 77 bpm Rest Sys BP: 155 mmHg Peak Sys BP: 146 mmHg Max Pred HR: 141 bpm % Max Pred HR: 55 % Target HR: 120 bpm Max RPP: 11,242 bpm*mmHg Termination Reason: Completed protocol Cardiac Symptoms: Shortness of breath Total Time: 1 min : 0 sec Rest Sarmiento BP: 78 mmHg Peak Sarmiento BP: 64 mmHg Total Dose: 0.4 mg Resting ECG Sinus rhythm. Stress ECG No ST changes. Arrhythmias None. Report Signatures
== END 2022-02-26 09:50 | disposition home or self-care (01) ==
PROVIDERS: PCP Family Medicine; Visit Provider Internal Medicine Cardiovascular Disease
DX: R06.09 Other forms of dyspnea (principal)
CPT/HCPCS: 78452; 93017; A9502; J2785

== ENCOUNTER 2022-03-16 06:54 | Emergency (ER) | payer MEDICARE, OTHER, SELFPAY ==
--- NOTE | ~2022-03-16 | CT_ITS ---
EXAMINATION: CT lumbar spine wo con DATE: 03/16/2022 07:51 INDICATION: Low back pain TECHNIQUE: Computed tomography (CT) of the lumbar spine was performed without intravenous contrast. T he dose-length product (DLP) was 494.55 mGy-cm. Iterative reconstruction was used. COMPARISON: MRI, 12/26/2021 FINDINGS: There is vertebroplasty change at T12, L1, and L2. The L3-L5 vertebral body heights are nor mal. There is moderate loss of intervertebral disc space height at L5-S1. No acute fracture is identi fied. Vertebral body alignment is normal. IMPRESSION: 1. Chronic fractures of T12-L2 with vertebroplasty change and severe lumbar spondylosis without acute findings. Reviewed, dictated and finalized at location A. OMER OPERATOR IMPRESSION: 1. Chronic fractures of T12-L2 with vertebroplasty change and severe lumbar spo ndylosis without acute findings.
--- NOTE | 2022-03-16 07:03 | ED.BACK ---
HPI - Back Pain/Injury General Chief Complaint: Back Pain/Injury Stated Complaint: lower back pain Time Seen by Provider: 03/16/22 06:57 Source: patient, family and RN notes reviewed Mode of arrival: wheelchair Limitations: no limitations History of Present Illness HPI Narrative: Patient states he has chronic back pain but it has got significantly worse this morning. They were concerned that it might have something do with inguinal hernias. He takes [place] 7.5 on a regular basis. He took 1 at 6:00 a.m. this morning but says it has not really helped. No no injury that he is aware of. Also concerned that he may have some new compression fractures. MD elicited complaint: back pain Pertinent past history: prior back pain Onset (ago): day(s) (1) Timing: intermittent Severity: severe Similar Symptoms Previously: Yes Quality: sharp and stabbing Location: lumbar spine Radiation: none Exacerbating factors: movement Relieving factors: medication (helps) Context: unknown Associated symptoms: difficulty walking Treatments prior to arrival: prescription analgesics (norco) Related Data Home Medications Medication Instructions Recorded Confirmed pcireu-vftnonnb-lncznri 2 cap PO BID 08/15/19 03/16/22 12,000-38,000-60,000 unit capsule,delayed rel (Creon) cholecalciferol (vitamin D3) 125 125 mcg PO DAILY 05/28/20 03/16/22 mcg (5,000 unit) capsule carbidopa 25 mg-levodopa 100 mg 2 tablet PO QID 05/15/21 03/16/22 tablet melatonin 10 mg capsule 10 mg PO QHS 05/15/21 03/16/22 clonazepam 0.5 mg tablet 0.5 mg PO HS 11/05/21 03/16/22 testosterone 3 pump topical DAILY 11/05/21 03/16/22 vitamins A,C,D-kmdc-hckinl 4,296 1 cap PO BID 01/29/22 03/16/22 mcg-226 mg-90 mg capsule (PreserVision AREDS) calcitriol 0.5 mcg capsule 0.5 mcg PO DAILY 02/06/22 03/16/22 sertraline 25 mg tablet 25 mg PO DAILY 02/06/22 03/16/22 Allergies Allergy/AdvReac Type Severity Reaction Status Date / Time adhesive tape Allergy Unknown rash Verified 03/16/22 07:14 Review of Systems Review of Systems: All systems reviewed & are unremarkable except as noted in HPI and below PMFSH Past Medical History Medical History Arthritis Arthritis of left hip CHF (congestive heart failure) Constipation 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 Generalized osteoarthritis Heart murmur Lumbar back pain with radiculopathy affecting left lower extremity Parkinsons disease Rectal fistula Trigger finger Surgical History Surgical History H/O hernia repair umbilical H/O repair of rotator cuff bilateral History of back surgery L3-:4 History of bilateral knee arthroplasty History of carpal tunnel release bilateral History of cataract surgery History of gastric bypass S/P biliopancreatic diversion with duodenal switch Family History Family History Mother Renal failure Father Burn Sibling Acute myocardial infarction Hypertension Liver cancer Bone cancer Other Family history of alcoholism Family history of arthritis Family history of glaucoma Family history of hearing loss Social History Social History Smoking packs per day: 1 Smoking cigarettes per day: 20.0 Years smoked: 7 Smoking pack-years: 7.00 Smoking status: Former smoker Tobacco type: cigarettes Second hand tobacco smoke exposure: No Smoking end date: 05/10/98 Alcohol intake: former Substance use type: painkillers Lack of Transportation: No Lack of Food: Never True Current Housing: I Have Housing Concerned About Future Housing: No Difficulty Paying Gas/Electric Bills: No Difficulty Paying for Meds: No Currently Unemployed: No Education: High School Diploma/GED Difficulty w/ Childcare or
[2022-03-16 07:08] VITALS: BP 109/42; PULSE 74; RESP 16; TEMP 36.6; O2SAT 96
[2022-03-16] MEDS: HYDROmorphone HCL INJ (*CRX) 2 MG/ML VIAL 1 MG IM (07:26)
[2022-03-16 08:46] VITALS: BP 127/60; PULSE 71; RESP 16; TEMP 36.4; O2SAT 100
== END 2022-03-16 08:48 | disposition home or self-care (01) ==
PROVIDERS: Emergency Provider Emergency Medicine; PCP Family Medicine
DX: G89.29 Other chronic pain (principal); M54.50 Low back pain, unspecified; I50.9 Heart failure, unspecified; Z87.891 Personal history of nicotine dependence
CPT/HCPCS: 72131; 96372; 99284; J1170

== ENCOUNTER 2022-03-18 15:53 | Emergency (ER) | payer MEDICARE, OTHER, SELFPAY ==
[2022-03-18 16:01] VITALS: BP 119/47; PULSE 63; RESP 16; TEMP 36.3; O2SAT 95
--- NOTE | 2022-03-18 18:38 | ED.BACK ---
HPI - Back Pain/Injury General Chief Complaint: Back Pain/Injury Stated Complaint: back pain Time Seen by Provider: 03/18/22 18:08 History of Present Illness HPI Narrative: Patient is a 81-year-old male with a history of osteoporosis and chronic compression fractures here for evaluation of acute on chronic low back pain x 5 days. Patient was seen in the ED at [place] for the symptoms, had a CT L spine that showed no acute process but did confirm presence of chronic compression fractures of T11-L2 Patient was given Dilaudid with transient improvement of his symptoms. States that over the past couple days after the Dilaudid wore off he has not been able to walk due to pain. He saw his primary care provider who referred him to the ED. he has been taking [place] without relief of his pain. Patient has not yet seen a neurosurgeon. He denies any incontinence or retention of bowel or bladder, saddle anesthesia. Related Data Home Medications Medication Instructions Recorded Confirmed qykevt-cppayflz-prnuuca 2 cap PO BID 08/15/19 03/18/22 12,000-38,000-60,000 unit capsule,delayed rel (Creon) cholecalciferol (vitamin D3) 125 125 mcg PO DAILY 05/28/20 03/18/22 mcg (5,000 unit) capsule carbidopa 25 mg-levodopa 100 mg 2 tablet PO QID 05/15/21 03/18/22 tablet melatonin 10 mg capsule 10 mg PO QHS 05/15/21 03/18/22 clonazepam 0.5 mg tablet 0.5 mg PO HS 11/05/21 03/18/22 testosterone 3 pump topical DAILY 11/05/21 03/18/22 vitamins A,C,L-iyoe-ytcebd 4,296 1 cap PO BID 01/29/22 03/18/22 mcg-226 mg-90 mg capsule (PreserVision AREDS) calcitriol 0.5 mcg capsule 0.5 mcg PO DAILY 02/06/22 03/18/22 sertraline 25 mg tablet 25 mg PO DAILY 02/06/22 03/18/22 Allergies Allergy/AdvReac Type Severity Reaction Status Date / Time adhesive tape Allergy Unknown rash Verified 03/18/22 14:20 Review of Systems Review of Systems: Gen: Denies fevers or chills Eyes: Denies eye pain or visual change ENT: Denies congestion Respiratory: Denies shortness of breath or cough CV: Denies chest pain or palpitations GI: Denies abdominal pain nausea, emesis or diarrhea : denies burning, urgency, frequency or hematuria Musculoskeletal: Reports back pain Neuro: Denies numbness, tingling, weakness or focal weakness Skin: Denies rash Except as documented, all other systems reviewed and negative [facility] Past Medical History Medical History Arthritis Arthritis of left hip CHF (congestive heart failure) Constipation 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 Generalized osteoarthritis Heart murmur Lumbar back pain with radiculopathy affecting left lower extremity Parkinsons disease Rectal fistula Trigger finger Surgical History Surgical History H/O hernia repair umbilical H/O repair of rotator cuff bilateral History of back surgery L3-:4 History of bilateral knee arthroplasty History of carpal tunnel release bilateral History of cataract surgery History of gastric bypass S/P biliopancreatic diversion with duodenal switch Family History Family History Mother Renal failure Father Burn Sibling Acute myocardial infarction Hypertension Liver cancer Bone cancer Other Family history of alcoholism Family history of arthritis Family history of glaucoma Family history of hearing loss Social History Social History Smoking packs per day: 1 Smoking cigarettes per day: 20.0 Years smoked: 7 Smoking pack-years: 7.00 Smoking status: Former smoker Tobacco type: cigarettes Second hand tobacco smoke exposure: No Smoking end date: 05/10/98 Alcohol intake: former Substance use type: painkillers Lack of Transportation: No Lack of Food: Keiko
[2022-03-18] MEDS: LIDOCAINE 5% PATCH 1 PATCH TRANSDERM (18:47)
[2022-03-18] MEDS: HYDROcodone/acetaminophen (*CRX) 10-325 MG TABLET 1 TAB PO (18:47)
[2022-03-18 18:50] VITALS: BP 106/49; PULSE 74; RESP 14; O2SAT 99
[2022-03-18] MEDS: TIZANIDINE HCL 2 MG TABLET PO (19:27)
[2022-03-18 20:09] VITALS: BP 110/56; PULSE 72; RESP 16; O2SAT 99
== END 2022-03-18 20:09 | disposition home or self-care (01) ==
PROVIDERS: Emergency Provider Physician Assistant; PCP Nurse Practitioner Family
DX: M48.55XA Collapsed vertebra, not elsewhere classified, thoracolumbar region, initial encounter for fracture (principal); I50.9 Heart failure, unspecified; G20 Parkinson's disease; M81.0 Age-related osteoporosis without current pathological fracture; M19.90 Unspecified osteoarthritis, unspecified site; Z98.1 Arthrodesis status; Z98.49 Cataract extraction status, unspecified eye; Z98.84 Bariatric surgery status; Z87.891 Personal history of nicotine dependence
CPT/HCPCS: 99283; A9270

== ENCOUNTER 2022-03-20 11:49 | Emergency (ER) | payer MEDICARE, OTHER, SELFPAY ==
--- NOTE | ~2022-03-20 | XR_ITS ---
EXAMINATION: XR chest 1V portable DATE: 03/20/2022 12:37 INDICATION: Shortness of breath. TECHNIQUE: A single frontal view of the chest was obtained. COMPARISON: Chest single view 11/05/2021, chest CT 11/05/2021 FINDINGS: There is a diffuse interstitial pattern in the lungs. No pleural effusion or pneumothorax. The heart size is normal. IMPRESSION: 1. Chronic interstitial pattern in the lungs, consistent with mild chronic interstitial lung disease. Reviewed, dictated and finalized at location A. TEAM COORDINATOR SCHEDULER IMPRESSION: 1. Chronic interstitial pattern in the lungs, consistent with mild chronic inte rstitial lung disease.
[2022-03-20 12:06] VITALS: BP 122/56; PULSE 75; RESP 16; TEMP 36.5; O2SAT 97
[2022-03-20] MEDS: KETOROLAC 30 MG/ML VIAL (*BKC) IM (12:39)
--- NOTE | 2022-03-20 13:36 | ED.BACK ---
HPI - Back Pain/Injury General Chief Complaint: Back Pain/Injury Stated Complaint: back pain. Time Seen by Provider: 03/20/22 11:51 Source: patient Mode of arrival: ambulatory Limitations: no limitations History of Present Illness HPI Narrative: this is a 81-year-old gentleman with a history of chronic low back pain and history of Parkinson's disease that presents with low back pain with cough congestion, currently no fever chills patient was seen at [facility] proximally 2 weeks ago and had a workup, currently a.m. the patient rates his pain at about an 8/10 with no relief with his current medication at home. Patient also describes some cough with congestion with no shortness of breath no fever chills no nausea vomiting no abdominal pain no saddle paresthesias MD elicited complaint: back pain Pertinent past history: prior back pain Onset (ago): week(s) Timing: constant Severity: severe Pain scale (0-10): 8 Quality: dull and aching Location: lumbar spine Related Data Home Medications Medication Instructions Recorded Confirmed [id number]-[id number] 2 cap PO BID 08/15/19 03/20/22 12,000-38,000-60,000 unit capsule,delayed rel (Creon) cholecalciferol (vitamin D3) 125 125 mcg PO DAILY 05/28/20 03/20/22 mcg (5,000 unit) capsule carbidopa 25 mg-levodopa 100 mg 2 tablet PO QID 05/15/21 03/20/22 tablet melatonin 10 mg capsule 10 mg PO QHS 05/15/21 03/20/22 clonazepam 0.5 mg tablet 0.5 mg PO HS 11/05/21 03/20/22 testosterone 3 pump topical DAILY 11/05/21 03/20/22 vitamins A,C,Z-injw-welrla 4,296 1 cap PO BID 01/29/22 03/20/22 mcg-226 mg-90 mg capsule (PreserVision AREDS) calcitriol 0.5 mcg capsule 0.5 mcg PO DAILY 02/06/22 03/20/22 sertraline 25 mg tablet 25 mg PO DAILY 02/06/22 03/20/22 Allergies Allergy/AdvReac Type Severity Reaction Status Date / Time adhesive tape Allergy Unknown rash Verified 03/20/22 11:52 Review of Systems Review of Systems: All systems reviewed & are unremarkable except as noted in HPI and below PMFSH Past Medical History Medical History Arthritis Arthritis of left hip CHF (congestive heart failure) Constipation 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 Generalized osteoarthritis Heart murmur Lumbar back pain with radiculopathy affecting left lower extremity Parkinsons disease Rectal fistula Trigger finger Surgical History Surgical History H/O hernia repair umbilical H/O repair of rotator cuff bilateral History of back surgery L3-:4 History of bilateral knee arthroplasty History of carpal tunnel release bilateral History of cataract surgery History of gastric bypass S/P biliopancreatic diversion with duodenal switch Family History Family History Mother Renal failure Father Burn Sibling Acute myocardial infarction Hypertension Liver cancer Bone cancer Other Family history of alcoholism Family history of arthritis Family history of glaucoma Family history of hearing loss Social History Social History Smoking packs per day: 1 Smoking cigarettes per day: 20.0 Years smoked: 7 Smoking pack-years: 7.00 Smoking status: Former smoker Tobacco type: cigarettes Second hand tobacco smoke exposure: No Smoking end date: 05/10/98 Alcohol intake: former Substance use type: painkillers Lack of Transportation: No Lack of Food: Never True Current Housing: I Have Housing Concerned About Future Housing: No Difficulty Paying Gas/Electric Bills: No Difficulty Paying for Meds: No Currently Unemployed: No Education: High School Diploma/GED Difficulty w/ Childcare or Family Care: Decline to Answer Living arrangements: with family Occupation/Education: r
[2022-03-20 13:56] VITALS: BP 96/47; PULSE 72; RESP 16; TEMP 36.9; O2SAT 98
== END 2022-03-20 13:56 | disposition home or self-care (01) ==
PROVIDERS: Emergency Provider Emergency Medicine; PCP Family Medicine
DX: J40 Bronchitis, not specified as acute or chronic (principal); M54.50 Low back pain, unspecified; I50.9 Heart failure, unspecified; G20 Parkinson's disease; Z87.891 Personal history of nicotine dependence
CPT/HCPCS: 71045; 96372; 99283; J1885

== ENCOUNTER 2022-03-24 12:13 | Outpatient (CLI) | payer MEDICARE, OTHER, SELFPAY ==
--- NOTE | 2022-03-24 12:20 | ECHO_ITS ---
Patient Info Name: Zachery Major Age: 81 years : 1940 Gender: Male Ht: 62 in Wt: 138 lbs BSA: 1.67 m2 HR: 79 bpm BP: 116 / 40 mmHg Heart Rhythm: Sinus Rhythm Technical Quality: Fair Exam Date: 03/24/2022 1:08 PM Exam Location: [facility] Patient Status: Outpatient Admit Date: 03/24/2022 Staff Ordering Physician: Enrique Dumas DO Explosives Worker: Marion Jackson RDCS Attending Provider: Enrique Dumas DO Referring Physician: Piter STAFFORD; Exam Type: CA echo doppler color flow Study Info Indications I35.0 - Nonrheumatic aortic (valve) stenosis Complete two-dimensional, color flow and Doppler transthoracic echocardiogram is performed. Summary 1. Complete two-dimensional, color flow and Doppler transthoracic echocardiogram is performed. 2. Left ventricular chamber dimension is normal. 3. Left ventricular systolic function is normal, estimated at 65-70%. 4. There is mild concentric increased left ventricular wall thickness. 5. The left ventricular diastolic function is grade I diastolic dysfunction. 6. E/e' 14 is mildly elevated. 7. Left atrial chamber dimension is mildly enlarged. 8. There is moderate aortic valve sclerosis. 9. There is moderate aortic valve stenosis with a peak velocity of 270 cm/s, mean gradient of 16 mmHg, and aortic valve area of 1.4 cm2. 10. There is mild aortic valve regurgitation. 11. The mitral valve has moderately calcified leaflets. 12. There is trace mitral valve regurgitation. 13. There is trace tricuspid valve regurgitation. 14. No pulmonary hypertension, estimated pulmonary arterial systolic pressure is 30 mmHg. 15. There is trace pulmonic regurgitation. Left Ventricle E/e' 14 is mildly elevated. Left ventricular chamber dimension is normal. Left ventricular systolic function is normal, estimated at 65-70%. There is mild concentric increased left ventricular wall thickness. The left ventricular diastolic function is grade I diastolic dysfunction. Right Ventricle Right ventricular systolic function is normal and with normal TAPSE 2.5 cm. Right ventricular chamber dimension is normal. Left Atria Left atrial chamber dimension is mildly enlarged. Right Atria Right atrial chamber dimension is normal. Aortic Valve The aortic valve is trileaflet. There is moderate aortic valve sclerosis. There is moderate aortic valve stenosis with a peak velocity of 270 cm/s, mean gradient of 16 mmHg, and aortic valve area of 1.4 cm2. There is mild aortic valve regurgitation. Pulmonic Valve There is trace pulmonic regurgitation. Mitral Valve The mitral valve has moderately calcified leaflets. There is no mitral valve stenosis. There is trace mitral valve regurgitation. Tricuspid Valve There is trace tricuspid valve regurgitation. No pulmonary hypertension, estimated pulmonary arterial systolic pressure is 30 mmHg. Pericardium/Pleural There is no pericardial effusion. Inferior Vena Cava Normal inferior vena cava with >50% collapse upon inspiration consistent with normal right atrial pressure, 5 mmHg. Aorta The aortic root size at the sinus of Valsalva is normal. Left Ventricular Outflow Tract Name Value Normal LVOT 2D LVOT Diameter 2.0 cm
== END 2022-03-24 12:14 | disposition home or self-care (01) ==
LOC: CHSIMG 12:15
PROVIDERS: PCP Family Medicine; Visit Provider Internal Medicine Cardiovascular Disease
DX: I35.0 Nonrheumatic aortic (valve) stenosis (principal)
CPT/HCPCS: 93306

== ENCOUNTER 2022-04-23 09:46 | Outpatient (CLI) | payer MEDICARE, OTHER, SELFPAY ==
--- NOTE | ~2022-04-23 | US_ITS ---
EXAMINATION: US soft tissue groin LT DATE: 04/23/2022 10:21 INDICATION: Left groin mass. TECHNIQUE: Multiple grayscale and Doppler ultrasound images of the left groin were obtained. COMPARISON: MRI 01/09/2022 FINDINGS: There is no abnormal mass or lymphadenopathy in the left inguinal region. IMPRESSION: 1. No abnormal mass or lymphadenopathy in the left inguinal region. An ultrasound correlate for the l eft inguinal hernia containing fat seen by MRI is not visualized. Reviewed, dictated and finalized at location A. IMPRESSION: 1. No abnormal mass or lymphadenopathy in the left inguinal region. An ultrasou nd correlate for the left inguinal hernia containing fat seen by MRI is not vis ualized.
== END 2022-04-23 09:47 | disposition home or self-care (01) ==
LOC: CHSIMG 09:47
PROVIDERS: PCP Family Medicine
DX: R22.42 Localized swelling, mass and lump, left lower limb (principal)
CPT/HCPCS: 76882

== ENCOUNTER 2022-07-31 10:50 | Outpatient (CLI) | payer MEDICARE, OTHER, SELFPAY ==
--- NOTE | ~2022-07-31 | DEXA_ITS ---
Bone Density Report Name: JOEL ESPINOZA Age: 81 Sex: Male Ethnicity: White Date of : 1940 Indication: screening for osteoporosis; height loss; prior fracture; Referring Provider: Clotilde Rouse Study: Bone densitometry was performed. Exam Date: July 31, 2022 Accession number: [id number] Bone Density: Region BMD T-score Z-score Classification Femoral Neck (Left) 0.495 -3.2 -1.7 Osteoporosis Total Hip (Left) 0.598 -2.9 -1.9 Osteoporosis Femoral Neck (Right) 0.421 -3.7 -2.2 Osteoporosis Total Hip (Right) 0.564 -3.1 -2.1 Osteoporosis Femoral Neck Mean 0.458 -3.5 -2.0 Osteoporosis Total Hip Mean 0.581 -3.0 -2.0 Osteoporosis World Health Organization criteria for BMD impression classify patients as: Normal (T-score at or above -1.0), Osteopenia (T-score between -1.0 and -2.5), or Osteoporosis (T-score at or below -2.5). 10-year Fracture Risk: FRAX not reported because: Some T-score for Spine Total or Hip Total or Femoral Neck at or below -2.5 Prior hip or vertebral fracture Treated for osteoporosis Clinical Information Provided by Patient: Have had a previous hip or vertebral fracture Has had a low trauma fracture Is being treated for osteoporosis Has used the following medications: Fosamax (i.e. alendronate), Reclast (i.e. zoledronate), Vitamin D, Calcium Patient maximum height was 69 Drinks caffeinated beverages Impression: The patient has established osteoporosis, based on the Right Femoral Neck T-score and the existence of a prior fracture. The patient has risk factors, including: previous fracture. Discussion: It is important to ask patients whether they are taking their medications and to encourage continued and appropriate compliance with their osteoporosis therapies to reduce fracture risk. It is also important to review their risk factors and encourage appropriate calcium and vitamin D intakes, exercise, fall prevention and other lifestyle measures. Follow-Up: Consider repeating this study in 2 years to reassess this patient's status, or sooner if there is some new clinical indication. Reported by: Dr. Sp Voss on 07/31/2022 11:18:00 AM. Reviewed, dictated and finalized at location A.
== END 2022-07-31 10:51 | disposition home or self-care (01) ==
LOC: CHSIMG 10:51
PROVIDERS: PCP Family Medicine; Visit Provider Family Medicine
DX: M81.8 Other osteoporosis without current pathological fracture (principal)
CPT/HCPCS: 77080

== ENCOUNTER 2022-08-07 11:58 | Outpatient (CLI) | payer MEDICARE, SELFPAY ==
[2022-08-07 12:42] LABS: Anion Gap 12 mmol/L (8-16); Blood Urea Nitrogen 70 mg/dL (7-18); Calcium 7.7 mg/dL (8.5-10.1); Carbon Dioxide 28 mmol/L (21-32); Chloride 105 mmol/L (98-108); Estimated Glomerular Filt Rate 33; Glucose 78 mg/dL (70-99); Magnesium 1.8 mg/dL (1.8-2.4); Osmolality Calculated 319 mOsm/kg (285-295); Potassium 3.5 mmol/L (3.5-5.1); Sodium 145 mmol/L (136-145)
== END 2022-08-07 11:59 | disposition home or self-care (01) ==
LOC: CHSLAB 12:00
PROVIDERS: PCP Family Medicine; Visit Provider Internal Medicine Cardiovascular Disease
DX: R60.0 Localized edema (principal)
CPT/HCPCS: 36415; 80048; 83735

== ENCOUNTER 2022-09-29 12:19 | Emergency (ER) | payer MEDICARE, OTHER, SELFPAY ==
[2022-09-29] VITALS (16 sets, daily range): BP systolic 116–138; BP diastolic 54–70; PULSE 65–90; RESP 16–18; TEMP 36.2–36.8; O2SAT 95–99
[2022-09-29] MEDS: SODIUM CHLORIDE 0.9% IV 1,000 ML 999 ML IV CONT (13:06)
[2022-09-29 13:09] LABS: Basophils Absolute Auto 0.06 K/mm3 (0.00-0.10); Basophils Percent Auto 0.9 % (0.0-1.0); Eosinophils Absolute Auto 0.08 K/mm3 (0.02-0.50); Eosinophils Percent Auto 1.2 % (1.0-6.0); Hematocrit 34.4 % (37.0-46.0); Hemoglobin 10.8 g/dL (12.4-15.3); Immature Granulocyte Absolute 0.01 K/mm3 (0.00-0.00); Immature Granulocyte Percent A 0.2 % (0.0-0.0); Lymphocytes Absolute Auto 1.54 K/mm3 (1.10-4.50); Lymphocytes Percent Auto 23.6 % (18.0-42.0); Mean Corpuscular HGB Conc 31.4 g/dL (32.0-36.0); Mean Corpuscular Hemoglobin 33.3 pg (27.0-31.0); Mean Corpuscular Volume 106.2 fL (78.0-102.0); Mean Platelet Volume 10.9 fl (8.7-11.0); Monocytes Absolute Auto 0.68 K/mm3 (0.10-0.90); Monocytes Percent Auto 10.4 % (2.0-11.0); Neutrophils Absolute Auto 4.2 K/mm3 (1.7-7.2); Neutrophils Percent Auto 63.7 % (50.0-70.0); Platelet Count Result 170 K/mm3 (150-420); Red Blood Count 3.24 M/mm3 (4.70-6.10); Red Cell Distribution Width 13.5 % (11.6-14.4); White Blood Count 6.5 K/mm3 (4.8-10.8)
[2022-09-29 13:25] LABS: Alanine Aminotransferase 8 U/L (16-63); Albumin Level 3.2 g/dL (3.4-5.0); Alkaline Phosphatase 84 U/L (46-116); Anion Gap 8 mmol/L (8-16); Aspartate Amino Transferase 14 U/L (15-37); Bilirubin,Total 0.4 mg/dL (0.00-1.00); Blood Urea Nitrogen 57 mg/dL (7-18); Calcium 8.7 mg/dL (8.5-10.1); Carbon Dioxide 27 mmol/L (21-32); Chloride 103 mmol/L (98-108); Estimated Glomerular Filt Rate 31; Glucose 89 mg/dL (70-99); Magnesium 1.9 mg/dL (1.8-2.4); Osmolality Calculated 300 mOsm/kg (285-295); Potassium 4.4 mmol/L (3.5-5.1); Sodium 138 mmol/L (136-145); Total Protein 6.8 g/dL (6.4-8.2)
[2022-09-29 13:30] LABS: Lactic Acid Reflex 1.1 mmol/L (0.4-2.0)
--- NOTE | 2022-09-29 13:31 | ED.GENADULT ---
HPI - General Adult General Chief complaint: Unspecified Stated complaint: lethargic; hallucinations Time Seen by Provider: 09/29/22 12:29 History of Present Illness HPI narrative: 81yo man history of parkinson dementia, brought by with concern for lethargy, sleepiness, and intermittent visual hallucinations of figures, animals, critters, nothing auditory or tactile. Pt has had these symptoms over the past year. Not difficult to arouse from sleep. No new medication changes. No fevers, chills, congestion, or pain. Takes all medicines as prescribed. Related Data Home Medications Medication Instructions Recorded Confirmed [id number]-[id number] 2 cap PO BID 08/15/19 08/28/22 12,000-38,000-60,000 unit capsule,delayed rel (Creon) carbidopa 25 mg-levodopa 100 mg 2 tablet PO QID 05/15/21 08/28/22 tablet melatonin 10 mg capsule 10 mg PO QHS 05/15/21 08/28/22 clonazepam 0.5 mg tablet 0.5 mg PO HS 11/05/21 08/28/22 testosterone 3 pump topical DAILY 11/05/21 08/28/22 vitamins A,C,N-jxze-cjmdoc 4,296 1 cap PO BID 01/29/22 08/28/22 mcg-226 mg-90 mg capsule (PreserVision AREDS) calcitriol 0.5 mcg capsule 0.5 mcg PO DAILY 02/06/22 08/28/22 sertraline 25 mg tablet 25 mg PO DAILY 02/06/22 08/28/22 Allergies Allergy/AdvReac Type Severity Reaction Status Date / Time adhesive tape Allergy Unknown rash Verified 09/29/22 12:57 Review of Systems Review of Systems: All systems reviewed & are unremarkable except as noted in HPI and below Constitutional: Constitutional: Denies chills and Denies fever(s) Eyes: Eyes: Denies change in vision ENT: Denies dysphagia Cardiovascular: Cardiovascular: Denies chest pain Respiratory: Respiratory: Denies dyspnea Gastrointestinal: Gastrointestinal: Denies abdominal pain [facility] Past Medical History Medical History Arthritis Arthritis of left hip CHF (congestive heart failure) Constipation 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 Generalized osteoarthritis Heart murmur Lumbar back pain with radiculopathy affecting left lower extremity Parkinsons disease Rectal fistula Trigger finger Surgical History Surgical History H/O hernia repair umbilical H/O repair of rotator cuff bilateral History of back surgery L3-:4 History of bilateral knee arthroplasty History of carpal tunnel release bilateral History of cataract surgery History of gastric bypass S/P biliopancreatic diversion with duodenal switch Family History Family History Mother Renal failure Father Burn Sibling Acute myocardial infarction Hypertension Liver cancer Bone cancer Other Family history of alcoholism Family history of arthritis Family history of glaucoma Family history of hearing loss Social History Social History Smoking packs per day: 1 Smoking cigarettes per day: 20.0 Years smoked: 7 Smoking pack-years: 7.00 Smoking status: Former smoker Tobacco type: cigarettes Second hand tobacco smoke exposure: No Smoking end date: 05/10/98 Alcohol intake: former Substance use type: painkillers Lack of Transportation: No Lack of Food: Never True Current Housing: I Have Housing Concerned About Future Housing: No Difficulty Paying Gas/Electric Bills: No Difficulty Paying for Meds: No Currently Unemployed: No Education: High School Diploma/GED Difficulty w/ Childcare or Family Care: Decline to Answer Living arrangements: with family Occupation/Education: retired Gender identity (if verbalized by the patient): Male Sexual Orientation (if Verbalized by the Patient): Straight or Heterosexual Spiritual care concerns: No Exam Const: General: healthy appearing and no
[2022-09-29 13:35] LABS: Appearance Urine Clear (Clear); Bilirubin Urine Negative (Negative); Blood Urine Negative (Negative); Color Urine Light Yellow (Yellow); Glucose Urine UA Negative (Negative); Ketones Urine Negative (Negative); Leukocyte Esterase Ur Negative LEU/UL (Negative); Nitrate Urine Negative (Negative); Protein Urine Negative (Negative); Specific Grav Ur 1.015 (1.010-1.020); Urobilinogen Urine 0.2 mg/dL (0.2-1.0); pH Urine 5.5 (5.0-8.0)
[2022-09-29 13:39] LABS: Add Urine Microscopic? NO
== END 2022-09-29 14:23 | disposition home or self-care (01) ==
PROVIDERS: Emergency Provider Emergency Medicine; PCP Family Medicine
DX: R44.1 Visual hallucinations (principal); E86.0 Dehydration; G20 Parkinson's disease; N18.4 Chronic kidney disease, stage 4 (severe); I50.9 Heart failure, unspecified; Z98.1 Arthrodesis status; Z98.84 Bariatric surgery status; Z87.891 Personal history of nicotine dependence; Z79.51 Long term (current) use of inhaled steroids; Z79.891 Long term (current) use of opiate analgesic
CPT/HCPCS: 36415; 80053; 81003; 83605; 83735; 85025; 96360; 99283; J7030

== ENCOUNTER 2022-10-20 09:23 | Outpatient (CLI) | payer MEDICARE, OTHER, SELFPAY ==
[2022-10-20 09:40] LABS: Basophils Absolute Auto 0.04 K/mm3 (0.00-0.10); Basophils Percent Auto 0.6 % (0.0-1.0); Eosinophils Absolute Auto 0.12 K/mm3 (0.02-0.50); Eosinophils Percent Auto 1.9 % (1.0-6.0); Hematocrit 34.7 % (37.0-46.0); Hemoglobin 10.5 g/dL (12.4-15.3); Immature Granulocyte Absolute 0.02 K/mm3 (0.00-0.00); Immature Granulocyte Percent A 0.3 % (0.0-0.0); Lymphocytes Absolute Auto 1.32 K/mm3 (1.10-4.50); Lymphocytes Percent Auto 20.9 % (18.0-42.0); Mean Corpuscular HGB Conc 30.3 g/dL (32.0-36.0); Mean Corpuscular Hemoglobin 32.3 pg (27.0-31.0); Mean Corpuscular Volume 106.8 fL (78.0-102.0); Mean Platelet Volume 10.6 fl (8.7-11.0); Monocytes Absolute Auto 0.53 K/mm3 (0.10-0.90); Monocytes Percent Auto 8.4 % (2.0-11.0); Neutrophils Absolute Auto 4.3 K/mm3 (1.7-7.2); Neutrophils Percent Auto 67.9 % (50.0-70.0); Platelet Count Result 167 K/mm3 (150-420); Red Blood Count 3.25 M/mm3 (4.70-6.10); White Blood Count 6.3 K/mm3 (4.8-10.8)
[2022-10-20 09:48] LABS: Creatinine Urine 63.88 mg/dL (40-278); MALB Creatinine Ratio 20.3 mg/g (0-30); Microalbumin Urine Random < 13.0 mg/L
[2022-10-20 09:50] LABS: Hemoglobin A1C 4.8 % (<5.7)
[2022-10-20 10:15] LABS: Alanine Aminotransferase 8 U/L (16-63); Albumin Level 3.2 g/dL (3.4-5.0); Alkaline Phosphatase 79 U/L (46-116); Anion Gap 7 mmol/L (8-16); Aspartate Amino Transferase 14 U/L (15-37); Bilirubin,Total 0.4 mg/dL (0.00-1.00); Blood Urea Nitrogen 45 mg/dL (7-18); Calcium 8.5 mg/dL (8.5-10.1); Carbon Dioxide 21 mmol/L (21-32); Chloride 110 mmol/L (98-108); Cholesterol 117 mg/dL (0-200); Estimated Glomerular Filt Rate 43; Glucose 86 mg/dL (70-99); HDL Direct 44 mg/dL (40-60); LDL Cholesterol Calculated 50 mg/dL (<130); Osmolality Calculated 296 mOsm/kg (285-295); Potassium 4.7 mmol/L (3.5-5.1); Sodium 138 mmol/L (136-145); Total Protein 6.4 g/dL (6.4-8.2); Triglycerides 114 mg/dL (0-150)
== END 2022-10-20 09:24 | disposition home or self-care (01) ==
LOC: CHSLAB 09:25
PROVIDERS: PCP Family Medicine; Visit Provider Family Medicine
DX: E11.9 Type 2 diabetes mellitus without complications (principal); I50.9 Heart failure, unspecified
CPT/HCPCS: 36415; 80053; 80061; 82043; 83036; 85025